=== PATIENT | female | born 1950 | race Caucasian/White ===

== ENCOUNTER 2023-08-17 17:27 | Emergency (ER) | payer MEDICARE, SELFPAY ==
[2023-08-17] VITALS (16 sets, daily range): BP systolic 95–137; BP diastolic 50–80; PULSE 54–97; RESP 16–27; TEMP 36.6–36.7; O2SAT 99–100; BMI 27.5
--- NOTE | 2023-08-17 17:43 | ECG_ITS ---
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
--- NOTE | 2023-08-17 17:43 | XR_ITS ---
The [address] [address] Patient Name: JANEEN PATTEN MRN: [id number] date: 1950 Sex: F Assigned Patient Location: ER Current Patient Location: ER Accession/Order Number: [id number] Exam Date: 08/17/2023 18:20 Report Date: 08/17/2023 18:56 At the request of: MEDARDO GÓMEZ Procedure: XR chest 1V EXAM: XR chest 1V at 1818 hours HISTORY: Dizziness COMPARISON: 02/03/2022 TECHNIQUE: AP upright portable chest x-ray FINDINGS: Shallow inspiration. The heart is not enlarged and the vasculature is not distended. Very slight haziness at the lung bases is felt to be due to overlying soft tissues. No definite infiltrate, effusion or pneumothorax is identified. The osseous structures are grossly intact. XR/XR chest 1V IMPRESSION: There is no clear evidence of a focal infiltrate or cardiac decompensation. Given the differences in technique and projection, the overall appearance has probably not changed significantly. A follow-up study encouraging the patient to take a deep inspiration in the fully upright position is recommended.. Electronically authenticated by: DEYVI RICHARD Date: 08/17/2023 18:56
--- NOTE | 2023-08-17 17:45 | ED_ITS ---
Documented by User: ARMANDO Gray 08/17/23 21:57 HPI - Dizziness General Chief Complaint: Dizziness Stated Complaint: DIZZNESS Time Seen by Provider: 08/17/23 17:32 Source: patient Limitations: no limitations History of Present Illness HPI Narrative: Patient is a 73-year-old female presents to the emergency department for an onset of dizziness, she states she feels like she is spinning but she is unable to describe if she has a sensation only at rest or if it is worse with ambulation. She states she took a Zyrtec several hours ago as she was feeling stuffy with nasal congestion and ear pressure. She states she drank a glass of wine just prior to arrival and believes that it made her very dizzy. She is actively vomiting at time of my initial interview. She has no chest pain, shortness of breath, headache, visual changes, peripheral paresthesias. No medications taken prior to arrival. She states she had vertigo in the past but does not feel this is similar Related Data Home Medications Medication Instructions Recorded Confirmed No Known Home Medications 08/17/23 08/17/23 Allergies Allergy/AdvReac Type Severity Reaction Status Date / Time No Known Drug Allergies Allergy Verified 08/17/23 17:33 Review of Systems ROS Constitutional Denies: fever or chills Ears, nose, mouth, and throat Denies: throat pain or nasal congestion Cardiovascular Denies: chest pain Respiratory Reports: cough; Denies: shortness of breath Gastrointestinal Reports: nausea and vomiting Musculoskeletal Denies: back pain or neck pain Integumentary/Breast Denies: rash Neurological Reports: dizziness; Denies: headache, numbness in extremities, weakness in extremities or slurred speech [facility] Social History Smoking status: Never smoker Exam Narrative Exam Narrative: Gen.: Awake, alert, in no distress Head: Normocephalic, atraumatic ENT: Moist mucous membranes, Bilateral TMs clear Respiratory: No respiratory distress, lungs clear bilaterally Cardio: Regular rate and rhythm Gastrointestinal: Abdomen is soft, nondistended and nontender to palpation Extremities: Moves extremities equally Psych: Normal mood and affect Neuro: No focal neuro deficit Skin: Warm, dry, intact Constitutional Vital Signs, click to edit/add: Last Vital Signs Temp 97.8 F 08/17/23 19:18 Pulse 54 L 08/17/23 21:51 Resp 18 08/17/23 21:51 BP 137/80 08/17/23 21:51 Pulse Ox 100 08/17/23 21:51 O2 Del Method Room Air 08/17/23 21:51 Course Vital Signs Vital signs: Vital Signs Temperature 98.0 F 08/17/23 17:34 Pulse Rate 67 08/17/23 17:34 Respiratory Rate 18 08/17/23 17:34 Blood Pressure 122/59 08/17/23 17:34 Pulse Oximetry 100 08/17/23 17:34 Oxygen Delivery Method Room Air 08/17/23 17:34 Temperature 97.8 F 08/17/23 19:18 Pulse Rate 54 L 08/17/23 21:51 Respiratory Rate 18 08/17/23 21:51 Blood Pressure 137/80 08/17/23 21:51 Pulse Oximetry 100 08/17/23 21:51 Oxygen Delivery Method Room Air 08/17/23 21:51 MDM - Dizziness MDM Narrative Medical decision making narrative: 2154: Treated with IV fluids, Zofran, Valium with improvement. Lab studies within normal limits. Patient was sent to [facility] for CT scanning as our CT scanner is down at this facility. Chest x-ray is unremarkable. She has no complaints of headache, visual changes, peripheral paresthesias. She was noted to have unequal pupils, she does have a history of cataract surgery. She has no other focal medical complaints in the ER. Case is turned over to attending physician at this time pending CT scan results Medical Records Attestation: I reviewed the patient's medical records. Lab Data Attestation: I reviewed the patient's lab results. Labs: Lab Results 08/17/23 08/17/23 08/17/23 Range/Units 17:49 17:53 20:40 WBC 6.7 (4.0-11.0) 10^3/uL RBC 4.35 (4.20-5.40) 10^6/uL Hgb 14.1 (12.0-16.0) g/dL Hct 42.4 (36.0-48.0) % MCV 97.5 (81.0-99.0) fL MCH 32.4 (26.7-34.0) pg MCHC 33.3 (29.9-35.2) g/dL RDW 11.9 (11.0-15.0) % Plt Count 278 (150-450) 10^3/uL MPV 9.4 L (9.5-13.5) fL Neut % (Auto) 39.2 L (43.0-75.0) % Lymph % (Auto) 47.4 (20.5-60.0) % [place] % (Auto) 9.3 (1.7-12.0) % Eos % (Auto) 1.5 (0.9-7.0) % Baso % (Auto) 1.4 (0.2-2.0) % Neut # (Auto) 2.6 (1.4-6.5) 10^3/uL Lymph # (Auto) 3.2 (1.2-3.8) 10^3/uL [place] # (Auto) 0.6 (0.3-0.8) 10^3/uL Eos # (Auto) 0.1 (0.0-0.7) 10^3/uL Baso # (Auto) 0.1 (0.0-0.1) 10^3/uL Abs Immat Gran (auto) 0.08 H (0.00-0.03) 10^3/uL Imm/Tot Granulo (auto) 1.2 H (0.0-0.5) % PT 9.7 (9.0-11.6) sec INR <0.93 Sodium 140 (136-145) mmol/L Potassium 3.3 L (3.5-5.1) mmol/L Chloride 102 (98-107) mmol/L Carbon Dioxide 23.6 (21.0-32.0) mmol/L Anion Gap 17.7 BUN 19.0 H (7.0-18.0) mg/dL Creatinine 0.78 (0.55-1.02) mg/dL Est GFR ( Amer) >60 (>=60) Est GFR (Non-Af Amer) >60 (>=60) BUN/Creatinine Ratio 24.4 Glucose 127 H (74-106) mg/dL Calcium 9.3 (8.5-10.1) mg/dL Total Bilirubin 0.4 (0.2-1.0) mg/dL AST 21 (15-37) U/L ALT 18 (14-59) U/L Alkaline Phosphatase 82 (46-116) U/L Troponin I High Sens <4.0 L (4.0-51.3) pg/mL Total Protein 7.4 (6.4-8.2) g/dL Albumin 3.6 (3.4-5.0) g/dL Globulin 3.8 g/dL Albumin/Globulin Ratio 0.9 TSH 2.187 (0.358-3.740) uIU/mL Urine Color Lt. yellow (YELLOW) Urine Clarity Clear (CLEAR) Urine pH 7.5 (5.0-9.0) Ur Specific [place] 1.015 (1.005-1.025) Urine Protein Negative (NEG/TRACE) mg/dL Urine Glucose (UA) Negative (NEGATIVE) mg/dL Urine Ketones Negative (NEGATIVE) mg/dL Urine Occult Blood Negative (NEGATIVE) Urine Nitrite Negative (NEGATIVE) Urine Bilirubin Negative (NEGATIVE) Urine Urobilinogen 0.2 (0.2-1.0) EU/dL Ur Leukocyte Esterase Small A (NEGATIVE) Urine RBC 0-2 (0-2) #/HPF Urine WBC 0-2 A (NONE SEEN) #/HPF Ur Squamous Epith Cells Rare (NONE/RARE) #/LPF Urine Crystals None seen (None Seen) #/HPF Urine Bacteria None seen (NONE SEEN) #/HPF Urine Casts None seen (NONE SEEN) #/LPF Urine Mucus None seen (NONE SEEN) Influenza Type A Ag Negative Influenza Type B Ag Negative SARS-CoV-2 Ag (CV2AG) Negative (NEGATIVE) Imaging Data Chest x-ray: Attestation: I have reviewed the pertinent imaging results. Radiologist's impression: ITS Impressions Chest X-Ray 08/17/23 17:43 IMPRESSION: There is no clear evidence of a focal infiltrate or cardiac decompensation. Given the differences in technique and projection, the overall appearance has probably not changed significantly. A follow-up study encouraging the patient to take a deep inspiration in the fully upright position is recommended.. Electronically authenticated by: DEYVI RICHARD Date: 08/17/2023 18:56 ECG Data Attestation: I personally reviewed and interpreted this ECG as follows: (Normal sinus rhythm at a rate of 68, no acute ST elevation or ectopy. EKG reviewed by attending physician) Discharge Plan Discharge Stand Alone Forms: Portal Instructions Chief Complaint: Dizziness Clinical Impression: Dizziness, Vertigo Patient Disposition: Home, Self-Care Time of Disposition Decision: 22:59 Condition: Good Prescriptions / Home Meds: No Action No Known Home Medications Instructions: Vertigo (ED), Lightheadedness (ED), Dizziness (ED) Referrals: Amina Jolly MD [Primary Care Provider] - 1 week Documented by User: Marily Lacey MD 08/17/23 23:00 HPI - Dizziness General Chief Complaint: Dizziness Stated Complaint: DIZZNESS Time Seen by Provider: 08/17/23 17:32 Related Data Home Medications Medication Instructions Recorded Confirmed No Known Home Medications 08/17/23 08/17/23 Allergies Allergy/AdvReac Type Severity Reaction Status Date / Time No Known Drug Allergies Allergy Verified 08/17/23 17:33 PFSH PFS Social History Smoking status: Never smoker Exam Constitutional Vital Signs, click to edit/add: Last Vital Signs Temp 97.8 F 08/17/23 19:18 Pulse 54 L 08/17/23 21:51 Resp 18 08/17/23 21:51 BP 137/80 08/17/23 21:51 Pulse Ox 100 08/17/23 21:51 O2 Del Method Room Air 08/17/23 21:51 Course Vital Signs Vital signs: Vital Signs Temperature 98.0 F 08/17/23 17:34 Pulse Rate 67 08/17/23 17:34 Respiratory Rate 18 08/17/23 17:34 Blood Pressure 122/59 08/17/23 17:34 Pulse Oximetry 100 08/17/23 17:34 Oxygen Delivery Method Room Air 08/17/23 17:34 Temperature 97.8 F 08/17/23 19:18 Pulse Rate 54 L 08/17/23 21:51 Respiratory Rate 18 08/17/23 21:51 Blood Pressure 137/80 08/17/23 21:51 Pulse Oximetry 100 08/17/23 21:51 Oxygen Delivery Method Room Air 08/17/23 21:51 MDM - Dizziness MDM Narrative Medical decision making narrative: 2154: Treated with IV fluids, Zofran, Valium with improvement. Lab studies within normal limits. Patient was sent to [facility] scanning as our CT scanner is down at this facility. Chest x-ray is unremarkable. She has no complaints of headache, visual changes, peripheral paresthesias. She was noted to have unequal pupils, she does have a history of cataract surgery. She has no other focal medical complaints in the ER. Case is turned over to attending physician at this time pending CT scan results Pt seen and evaluated after CT scanning. She states she is feeling better and her dizziness has resolved. She ambulated around the ER without dizziness or ataxia. Her CT report is negative for acute findings. She feels comfortable going home and requested that I suggest something to help unclog her left ear. She recently had URI symptoms and still has fluid behind her left ear. I reviewed this. There is an effusion behind her left eardrum that does not appear to be red or retracted. She'll be discharged home with meclizine. I suggested Mucinex as needed for the fluid behind her eardrum. She will be discharged home with Rx for meclizine. Lab Data Labs: Lab Results 08/17/23 08/17/23 08/17/23 Range/Units 17:49 17:53 20:40 WBC 6.7 (4.0-11.0) 10^3/uL RBC 4.35 (4.20-5.40) 10^6/uL Hgb 14.1 (12.0-16.0) g/dL Hct 42.4 (36.0-48.0) % MCV 97.5 (81.0-99.0) fL MCH 32.4 (26.7-34.0) pg MCHC 33.3 (29.9-35.2) g/dL RDW 11.9 (11.0-15.0) % Plt Count 278 (150-450) 10^3/uL MPV 9.4 L (9.5-13.5) fL Neut % (Auto) 39.2 L (43.0-75.0) % Lymph % (Auto) 47.4 (20.5-60.0) % [place] % (Auto) 9.3 (1.7-12.0) % Eos % (Auto) 1.5 (0.9-7.0) % Baso % (Auto) 1.4 (0.2-2.0) % Neut # (Auto) 2.6 (1.4-6.5) 10^3/uL Lymph # (Auto) 3.2 (1.2-3.8) 10^3/uL [place] # (Auto) 0.6 (0.3-0.8) 10^3/uL Eos # (Auto) 0.1 (0.0-0.7) 10^3/uL Baso # (Auto) 0.1 (0.0-0.1) 10^3/uL Abs Immat Gran (auto) 0.08 H (0.00-0.03) 10^3/uL Imm/Tot Granulo (auto) 1.2 H (0.0-0.5) % PT 9.7 (9.0-11.6) sec INR <0.93 Sodium 140 (136-145) mmol/L Potassium 3.3 L (3.5-5.1) mmol/L Chloride 102 (98-107) mmol/L Carbon Dioxide 23.6 (21.0-32.0) mmol/L Anion Gap 17.7 BUN 19.0 H (7.0-18.0) mg/dL Creatinine 0.78 (0.55-1.02) mg/dL Est GFR ( Amer) >60 (>=60) Est GFR (Non-Af Amer) >60 (>=60) BUN/Creatinine Ratio 24.4 Glucose 127 H (74-106) mg/dL Calcium 9.3 (8.5-10.1) mg/dL Total Bilirubin 0.4 (0.2-1.0) mg/dL AST 21 (15-37) U/L ALT 18 (14-59) U/L Alkaline Phosphatase 82 (46-116) U/L Troponin I High Sens <4.0 L (4.0-51.3) pg/mL Total Protein 7.4 (6.4-8.2) g/dL Albumin 3.6 (3.4-5.0) g/dL Globulin 3.8 g/dL Albumin/Globulin Ratio 0.9 TSH 2.187 (0.358-3.740) uIU/mL Urine Color Lt. yellow (YELLOW) Urine Clarity Clear (CLEAR) Urine pH 7.5 (5.0-9.0) Ur Specific [place] 1.015 (1.005-1.025) Urine Protein Negative (NEG/TRACE) mg/dL Urine Glucose (UA) Negative (NEGATIVE) mg/dL Urine Ketones Negative (NEGATIVE) mg/dL Urine Occult Blood Negative (NEGATIVE) Urine Nitrite Negative (NEGATIVE) Urine Bilirubin Negative (NEGATIVE) Urine Urobilinogen 0.2 (0.2-1.0) EU/dL Ur Leukocyte Esterase Small A (NEGATIVE) Urine RBC 0-2 (0-2) #/HPF Urine WBC 0-2 A (NONE SEEN) #/HPF Ur Squamous Epith Cells Rare (NONE/RARE) #/LPF Urine Crystals None seen (None Seen) #/HPF Urine Bacteria None seen (NONE SEEN) #/HPF Urine Casts None seen (NONE SEEN) #/LPF Urine Mucus None seen (NONE SEEN) Influenza Type A Ag Negative Influenza Type B Ag Negative SARS-CoV-2 Ag (CV2AG) Negative (NEGATIVE) Imaging Data Chest x-ray: Radiologist's impression: ITS Impressions Chest X-Ray 08/17/23 17:43 IMPRESSION: There is no clear evidence of a focal infiltrate or cardiac decompensation. Given the differences in technique and projection, the overall appearance has probably not changed significantly. A follow-up study encouraging the patient to take a deep inspiration in the fully upright position is recommended.. Electronically authenticated by: DEYVI RICHARD Date: 08/17/2023 18:56 Discharge Plan Discharge Stand Alone Forms: Portal Instructions Chief Complaint: Dizziness Clinical Impression: Dizziness, Vertigo Patient Disposition: Home, Self-Care Time of Disposition Decision: 22:59 Condition: Good Prescriptions / Home Meds: No Action No Known Home Medications Instructions: Vertigo (ED), Lightheadedness (ED), Dizziness (ED) Referrals: Amina Jolly MD [Primary Care Provider] - 1 week
[2023-08-17] MEDS: 0.9 % SODIUM CHLORIDE 1,000 ML 999 ML IV (17:50)
[2023-08-17] MEDS: ONDANSETRON PF 4 MG/2 ML VIAL IV ×2 (17:51→18:44)
[2023-08-17] MEDS: MECLIZINE HCL 12.5 MG TABLET 25 MG PO (17:51)
[2023-08-17 18:00] LABS: Basophils Absolute Auto 0.1 10^3/uL (0.0-0.1); Basophils Percent Auto 1.4 % (0.2-2.0); Eosinophils Absolute Auto 0.1 10^3/uL (0.0-0.7); Eosinophils Percent Auto 1.5 % (0.9-7.0); Hematocrit 42.4 % (36.0-48.0); Hemoglobin 14.1 g/dL (12.0-16.0); Immature Granulocytes Abs Auto 0.08 10^3/uL (0.00-0.03); Immature Granulocytes Pct Auto 1.2 % (0.0-0.5); Lymphocytes Absolute Auto 3.2 10^3/uL (1.2-3.8); Lymphocytes Percent Auto 47.4 % (20.5-60.0); Mean Corpuscular HGB Conc 33.3 g/dL (29.9-35.2); Mean Corpuscular Hemoglobin 32.4 pg (26.7-34.0); Mean Corpuscular Volume 97.5 fL (81.0-99.0); Mean Platelet Volume 9.4 fL (9.5-13.5); Monocytes Absolute Auto 0.6 10^3/uL (0.3-0.8); Monocytes Percent Auto 9.3 % (1.7-12.0); Neutrophils Absolute Auto 2.6 10^3/uL (1.4-6.5); Neutrophils Percent Auto 39.2 % (43.0-75.0); Platelet Count 278 10^3/uL (150-450); Red Blood Count 4.35 10^6/uL (4.20-5.40); Red Cell Distribution Width 11.9 % (11.0-15.0); White Blood Count 6.7 10^3/uL (4.0-11.0)
[2023-08-17 18:14] LABS: Influenza Virus A Antigen Negative; Influenza Virus B Antigen Negative; Internal Control Within Normal Limits; SARS-CoV-2 Ag NEGATIVE (NEGATIVE)
[2023-08-17 18:14] LABS: INR <0.93; Prothrombin Time 9.7 sec (9.0-11.6)
[2023-08-17 18:15] LABS: Alanine Aminotransferase 18 U/L (14-59); Albumin Globulin Ratio 0.9; Albumin Level 3.6 g/dL (3.4-5.0); Alkaline Phosphatase 82 U/L (46-116); Anion Gap 17.7; Aspartate Amino Transferase 21 U/L (15-37); BUN Creatinine Ratio 24.4; Bilirubin Total 0.4 mg/dL (0.2-1.0); Calcium 9.3 mg/dL (8.5-10.1); Carbon Dioxide 23.6 mmol/L (21.0-32.0); Chloride 102 mmol/L (98-107); Estimated GFR (African America >60 (>=60); Estimated GFR (Non-African Ame >60 (>=60); Globulin 3.8 g/dL; Glucose 127 mg/dL (74-106); Potassium 3.3 mmol/L (3.5-5.1); Sodium 140 mmol/L (136-145); Total Protein 7.4 g/dL (6.4-8.2)
[2023-08-17] MEDS: DIAZEPAM 10 MG/2 ML SYRINGE 2 MG IV (18:21)
[2023-08-17 18:24] LABS: Thyroid Stimulating Hormone 2.187 uIU/mL (0.358-3.740); Troponin I High Sensitivity <4.0 pg/mL (4.0-51.3)
[2023-08-17 20:46] LABS: Bilirubin Urine NEGATIVE (NEGATIVE); Blood Urine NEGATIVE (NEGATIVE); Clarity Urine CLEAR (CLEAR); Color Urine LT. YELLOW (YELLOW); Glucose Urine UA NEGATIVE (NEGATIVE); Ketones Urine NEGATIVE (NEGATIVE); Leukocyte Esterase Urine SMALL (NEGATIVE); Nitrite Urine NEGATIVE (NEGATIVE); Protein Urine NEGATIVE (NEG/TRACE); Specific Gravity Urine 1.015 (1.005-1.025); Urine Microscopic Indicated YES; Urobilinogen Urine 0.2 EU/dL (0.2-1.0); pH Urine 7.5 (5.0-9.0)
[2023-08-17 21:14] LABS: Bacteria Urine NONE SEEN #/HPF (NONE SEEN); Cast Seen? NONE SEEN #/LPF (NONE SEEN); Crystals Seen? None Seen #/HPF (None Seen); Mucus Urine NONE SEEN (NONE SEEN); RBC Urine 0-2 #/HPF (0-2); Squamous Epithelial Cell Urine RARE #/LPF (NONE/RARE); WBC Urine 0-2 #/HPF (NONE SEEN)
== END 2023-08-17 23:08 | disposition home or self-care (01) ==
PROVIDERS: Physician Assistant; Emergency Provider Emergency Medicine; PCP Family Medicine
DX: R42 Dizziness and giddiness (principal); R11.2 Nausea with vomiting, unspecified; R05.9 Cough, unspecified
CPT/HCPCS: 36415; 70450; 71045; 80053; 81001; 84443; 84484; 85025; 85610; 87804; 87811; 93005; 96374; 96375; 96376; 99285

== ENCOUNTER 2023-09-14 07:48 | Outpatient (RCR) | payer MEDICARE, SELFPAY | END 2023-09-22 13:19 | disposition home or self-care (01) | LOC: PT 07:48 | PROVIDERS: PCP Family Medicine; Visit Provider Family Medicine | DX: R42 Dizziness and giddiness (principal) | CPT/HCPCS: 97112; 97162 ==

== ENCOUNTER 2023-11-22 06:19 | Emergency (ER) | payer MEDICARE, SELFPAY ==
[2023-11-22] VITALS (21 sets, daily range): BP systolic 96–163; BP diastolic 59–68; PULSE 49–68; TEMP 36.6; O2SAT 97–100; BMI 26.6
--- OUTSIDE RECORDS SUMMARY | 2023-11-22 06:27 | XMS_ITS ---
Patient Summarization (C-CDA 2.1 CCD) Created on: November 22, 2023 Nette Puentes : 1950 Sex: Female Author Organization Sample organization Care Team Providers Care Cargo Mate Name Role Phone JAYSON, DR AMINA Garduno Primary Care Unavailable TYLER, DR AMINA Garduno Admitting Unavailable TYLER, DR AMINA Garduno Attending Unavailable ZIEBER, DR FRANDY Infante Consulting Unavailable TYLER, DR AMINA Garduno Consulting Unavailable TYLER, DR AMINA Garduno Admitting Unavailable TYLER, DR AMINA Garduno Attending Unavailable TYLER, DR AMINA Garduno Consulting Unavailable TYLER, DR AMINA Garduno Primary Care Unavailable TYLER, DR AMINA Garduno Admitting Unavailable TYLER, DR AMINA Garduno Attending Unavailable TYLER, DR AMINA Garduno Consulting Unavailable TYLER, DR AMINA Garduno Primary Care Unavailable MARKER, DR GUZMÁN Admitting Unavailable MARKER, DR GUZMÁN Attending Unavailable MARKER, DR GUZMÁN Consulting Unavailable TYLER, DR AMINA Garduno Primary Care Unavailable KLIPPERAPOLLO Consulting Unavailable Tyler, Amina Unavailable JAYSON, AMINA Primary Care Physician Padma Joyner Attending Unavailable Ar, Padma Admitting Unavailable Ar, Padma Admitting Unavailable Ar, Padma Attending Unavailable Encounters Encounter Date Encounter Type Care Provider Facility Start: 09-11-2023 End: 09-11-2023 ambulatory [facility] Work Phone: Start: 09-11-2023 End: 09-11-2023 Patient encounter procedure [facility] Work Phone: Start: 08-21-2023 End: 08-21-2023 Patient encounter procedure [facility] Work Phone: Start: 08-17-2023 End: 08-18-2023 ambulatory Padma Joyner Facility:[facility] Start: 08-17-2023 End: 08-17-2023 Patient encounter procedure Padma Joyner [facility] Start: 08-17-2023 Non-patient / Non-visit [facility] [employer] Work Phone: Start: 02-23-2023 End: 02-23-2023 ambulatory Amina Tyler Other [facility] [employer] Other Start: 02-23-2023 Office outpatient vi sit 15 minutes Amina Tyler [facility] Start: 05-09-2022 End: 05-10-[address] AMINA TYLER Facility:[facility] Start: 02-11-2022 End: 02-12-[address] AMINA TYLER Facility:[facility] Start: 02-03-2022 End: 02-04-[address] RAMIREZ LOVING Facility:[facility] Start: 05-26-2021 End: 05-26-[address] AMINA TYLER Facility:[facility] Immunizations Immunization Date Immunization Notes Care Provider Fa yola 03-16-2020 pneumococcal conjuga te vaccine, 13 valent Amina Tyler Other [facility] Medications Current Medications Medication Drug Class(es) Dates Sig (Normalized) Sig (Original) meclizine hydrochloride 25 mg oral tablet (2 sources) Antiemetic Start: 08-21-2023 take 25 mg by mouth once daily Meclizine Active 25 MG PO Daily August 21, 2023 12:00am take 1 tablet by barbara th every twelve hours Meclizine HCl 25 MG 1 tablet as needed Orally every 12 hrs for 15 days Active meloxicam 15 mg oral tablet (1 source) Nonsteroidal Anti-inflammatory Drug Start: 05-04-2021 take 1 tablet by mouth once daily Meloxicam 15 MG Meloxicam 15MG, 1 (one) Tablet daily # 30, 05/04/2021, Ref. x1. Active Oral daily for 0 Apr, Active vitamin B12 (1 source) Vitamin B12 Start: 05-08-2018 Vitamin B-12 Vitamin B-12 , , 05/08/2018, No Refill. Active for 0 VITAMIN B-12 500 MCG ORAL TABLET, *Pick strength-form from [employer] for eRX* Apr, Active Payers Date Payer Category Payer Medicare [id number] 1959 Private Health Insurance [id number] 1950 Unknown [id number] 1950 Unknown [id number] 1950 Unknown [id number] 1950 Unknown [id number] 1950 Unknown [id number] 1950 Unknown [id number] Private Health Insurance CLI [id number] Unknown Bisi COX/SHEELA [id number] Plan of Treatment Date Care Activity Detail Author Start: 09-11-2023 Patient referral [facility] Work Phone: Patient referral [facility] Work Phone: Problems Active Problems Problem Classification Problem Date Documented Date Episodic/Chronic Anxiety disorders (3 sources) Other specified anxiety disorders; Translations: [Panic disorder [episodic paroxysmal anxiety]] Onset: 02-07-2022 Chronic Conditions associated with dizziness or vertigo (7 sources) Dizziness and giddiness; Translations: [Benign paroxysmal vertigo, unspecified ear] Onset: 02-03-2022 Episodic Other ear and sense organ disorders (1 source) Hearing loss of left ear; Translations: [Unspecified hearing loss, left ear] 09-11-2023 Chronic Other ear and sense organ disorders (1 source) Unspecified hearing loss, left ear; Translations: [Unspecified hearing loss] 09-11-2023 Chronic Other ear and sense organ disorders (1 source) Tinnitus; Translations: [Tinnitus, left ear] 09-11-2023 Episodic Other ear and sense organ disorders (1 source) Tinnitus, left ear; Translations: [Tinnitus, unspecified] 09-11-2023 Episodic Other non-traumatic joint disorders (1 source) Shoulder joint pain; Translations: [Pain in right shoulder] Episodic Other screening for suspected conditions (not mental disorders or infectious disease) (4 sources) Encounter for screening mammogram for malignant neoplasm of breast; Translations: [ENC SCR MAMMO MALIG NEOPLASM BREAST] Onset: 05-09-2022 Episodic Otitis media and related conditions (2 sources) Acute transudative otitis media; Translations: [Other acute nonsuppurative otitis media, bilateral] 08-24-2023 Episodic Residual codes; unclassified (1 source) Family history of malignant neoplasm of other organs or systems; Translations: [FAM HX MALIG NEOPLASM OTH ORGN/SYS] Onset: 05-14-2022 Episodic Syncope (5 sources) Syncope and collapse; Translations: [Syncope and collapse] Onset: 02-11-2022 Episodic Unclassified (4 sources) CONTACT W/AND (SUSP) EXPOS COVID-19; Translations: [CONTACT W/AND (SUSP) EXPOS COVID-19] Onset: 05-29-2021 Past or Other Problems Problem Classification Problem Date Documented Da te Episodic/Chronic Other lower respiratory disease (1 source) Dyspnea, unspecified; Translations: [DYSPNEA UNSPECIFIED] Onset: 02-07-2022 Episodic Unclassified (1 source) CONTACT W/AND (SUSP) EXPOS COVID-19; Translations: [CONTACT W/AND (SUSP) EXPOS COVID-19] Onset: 05-26-2021 Results Test Name Value Interpretation Reference Range Facility CT Head or Brain w/o Contras ton 08-18-2023 CT Head or Brain w/o Contrast Exam Date/Time: 08/17/2023 21:18 EST Reason for Exam: Other (please specify)Dizziness Report IMPRESSION: No acute intracranial process. EXAMINATION: CT Head or Brain w/o Contrast HISTORY: Other (please specify)Dizziness. Nausea. Vomiting. Dizziness. Weakness. TECHNIQUE: Serial axial images without IV contrast were obtained from the vertex to the foramen magnum, with sagittal and coronal reconstructions. All CT scans at this facility use dose modulation, iterative reconstruction, and/or weight based dosing when appropriate to reduce radiation dose to as low as reasonably achievable. COMPARISON: None. RESULT: Acute change: No evidence of an acute infarct or other acute parenchymal process. Hemorrhage: No evidence of acute intracranial hemorrhage. Mass Lesion / Mass Effect: There is no evidence of an intracranial mass or extraaxial fluid collection. No significant mass effect. Chronic change: None apparent. Parenchyma: There is mild generalized volume loss. Ventricles: The ventricles are within normal limits of size and configuration for age. Paranasal sinuses and skull base: Thickening/opacificati on of the left sphenoid sinus. Mastoid air cells clear. The skull base is unremarkable. Soft tissues unremarkable. Report Ordering Provider: Padma Joyner FINAL REPORT Dictated: 08/18/2023 9:03 am Lorenzo Viramontes MD Signed (Electronic Signature): 08/18/2023 9:03 am Signed by: Lorenzo Viramontes MD Transcribed by: JORDYN Technologist: LIZZ Normal [facility] Automated epithelial cells c ount in urine sediment (number/area)on 08-17-2023 Epithelial cells Auto (Urine sed) [#/Area] RARE #/LPF NONE/RARE [facility] Automated leukocytes count i n urine sediment (number/area)on 08-17-2023 WBC Auto (Urine sed) [#/Area] 0-2 #/HPF 0-2 [facility] Automated urine specific gra vity by refractometryon 08-17-2023 Specific gravity Refractometry automated (U) [Rel density] 1.015 1.005-1.025 [facility] Basophils Auto (Bld) [#/Vol] on 08-17-2023 Basophils (Bld) [#/Vol] 0.1 10 3/uL 0.0-0.1 [facility] Basophils/100 WBC Auto (Bld) on 08-17-2023 Basophils/100 WBC (Bld) 1.4 % 0.2-2.0 [facility] Bilirubin Auto test strip (U ) [Mass/Vol]on 08-17-2023 Bilirubin (U) [Mass/Vol] Negative NEGATIVE [facility] Casts typing in urine sedime nt by light microscopyon 08-17-2023 Casts LM Nom (Urine sed) NONE SEEN #/LPF NONE SEEN [facility] Color Auto (U)on 08-17-2023 Color (U) LT. YELLOW YELLOW [facility] Consent for Treatmenton Consent for Treatment [id number]#1. 00TIFF Normal [facility] Eosinophils/100 WBC Auto (Bl d)on 08-17-2023 Eosinophils/100 WBC (Bld) 1.5 % 0.9-7.0 [facility] Erythrocyte distribution wid th Auto (RBC) [Ratio]on 08-17-2023 Erythrocyte distribution width (RBC) [Ratio] 11.9 % 11.0-15.0 [facility] Estimated glomerular filtrat ion rate (GFR) non- Americanon 08-17-2023 GFR/1.73 sq M.predicted among non-blacks MDRD (S/P/Bld) [Vol rate/Area] mL/min/{1.73_m2} >=60 [facility] Globulin Calc (S) [Mass/Vol] on 08-17-2023 Globulin (S) [Mass/Vol] 3.8 g/dL [facility] Hematocrit Auto (Bld) [Volum e fraction]on 08-17-2023 Hematocrit (Bld) [Volume fraction] 42.4 % 36.0-48.0 [facility] Hemoglobin [Mass/volume] in Bloodon 08-17-2023 Hemoglobin (Bld) [Mass/Vol] 14.1 g/dL 12.0-16.0 [facility] INR in Platelet poor plasma by Coagulation assayon 08-17-2023 INR Coag (PPP) [Relative time] {INR} [facility] Comment on above: DESIRED INR:2.0-3.0 CONDITIONS NOT LISTED BELOW2.5-3.5 FOR PROSTHETIC HEART VALVE REPLACEMENT2.5-3.5 RECURRENT THROMBOSIS Ketones Auto test strip (U) [Mass/Vol]on 08-17-2023 Ketones (U) [Mass/Vol] Negative NEGATIVE [facility] Laboratory - Chemistry and C hemistry - challengeon 08-17-2023 Albumin [Mass/Vol] 3.6 g/dL 3.4-5.0 [facility] ALP [Catalytic activity/Vol] 82 U/L 46-116 [facility] ALT [Catalytic activity/Vol] 18 U/L 14-59 [facility] AST [Catalytic activity/Vol] 21 U/L 15-37 [facility] Bilirubin [Mass/Vol] 0.4 mg/dL 0.2-1.0 [facility] Calcium [Mass/Vol] 9.3 mg/dL 8.5-10.1 [facility] Chloride [Moles/Vol] 102 mmol/L 98-107 [facility] CO2 [Moles/Vol] 23.6 mmol/L 21.0-32.0 [facility] Creatinine [Mass/Vol] 0.78 mg/dL 0.55-1.02 [facility] GFR/1.73 sq M.predicted MDRD (S/P/Bld) [Vol rate/Area] mL/min/{1.73_m2} >=60 [facility] Glucose [Mass/Vol] 127 mg/dL 74-106 [facility] Potassium [Moles/Vol] 3.3 mmol/L 3.5-5.1 [facility] Protein [Mass/Vol] 7.4 g/dL 6.4-8.2 [facility] Sodium [Moles/Vol] 140 mmol/L 136-145 [facility] TSH Qn 2.187 m[IU]/L 0.358-3.740 [facility] Urea nitrogen [Mass/Vol] 19.0 mg/dL 7.0-18.0 [facility] Urea nitrogen/Creatinine [Mass ratio] 24.4 mg/mg [facility] - Hematology and Cell countson 08-17-2023 Immature granulocytes/100 WBC (Bld) 1.2 % 0.0-0.5 [facility] - Microbiology an d Antimicrobial susceptibilityon 08-17-2023 SARS-CoV-2 (COVID-19) RNA PADMINI+probe Ql (Unsp spec) Negative NEGATIVE [facility] Comment on above: This test has not be en FDA cleared or approved, but has beenauthorized by the FDA under an Emergency Use Authorization(EUA) for use by authorized laboratories certified underIA that meet the requirements to perform moderate or highcomplexity testing. This test has been authorized only forthe detection of proteins from SARS-CoV-2, not for any otherviruses or pathogens. The emergency use of this test isauthorized for the duration of the declaration thatcircumstances exist justifying the authorization ofemergency use of in vitro diagnostic tests for detectionand/or diagnosis of Covid-19 under section 564(b)(1) of theAct, 21 U.S.C. 360bbb-3(b)(1), unless the declaration isterminated or authorization is revoked sooner. Leukocytes [#/volume] correc vikash for nucleated erythrocytes in Blood by Automated counon 08-17-2023 WBC corrected for nucl RBC Auto (Bld) [#/Vol] 6.7 10 3/uL 4.0-11.0 [facility] Lymphocytes Auto (Bld) [#/Vo l]on 08-17-2023 Lymphocytes (Bld) [#/Vol] 3.2 10 3/uL 1.2-3.8 [facility] Lymphocytes/100 WBC Auto (Bl d)on 08-17-2023 Lymphocytes/100 WBC (Bld) 47.4 % 20.5-60.0 [facility] MCH Auto (RBC) [Entitic mass ]on 08-17-2023 MCH (RBC) [Entitic mass] 32.4 pg 26.7-34.0 [facility] MCHC Auto (RBC) [Mass/Vol]on 08-17-2023 MCHC (RBC) [Mass/Vol] 33.3 g/dL 29.9-35.2 [facility] MCV Auto (RBC) [Entitic vol] on 08-17-2023 MCV (RBC) [Entitic vol] 97.5 fL 81.0-99.0 [facility] Monocytes Auto (Bld) [#/Vol] on 08-17-2023 Monocytes (Bld) [#/Vol] 0.6 10 3/uL 0.3-0.8 [facility] Monocytes/100 WBC Auto (Bld) on 08-17-2023 Monocytes/100 WBC (Bld) 9.3 % 1.7-12.0 [facility] Mucus LM Ql (Urine sed)on Mucus Ql (Urine sed) NONE SEEN NONE SEEN [facility] Neutrophils Auto (Bld) [#/Vo l]on 08-17-2023 Neutrophils (Bld) [#/Vol] 2.6 10 3/uL 1.4-6.5 [facility] Neutrophils/100 WBC Auto (Bl d)on 08-17-2023 Neutrophils/100 WBC (Bld) 39.2 % 43.0-75.0 [facility] No Panel Informationon 08-16 Bedside Influenza Type A Antigen Negative [facility] Comment on above: Negative for Flu A p rotein antigen. Infection due to Flu Acannot be ruled out. Flu A antigen in the sample may bebelow the detection limit of the test. Bedside Influenza Type B Antigen Negative [facility] Comment on above: Negative for Flu B p rotein antigen. Infection due to Flu Bcannot be ruled out. Flu B antigen in the sample may bebelow the detection limit of the test. Eosinophils # (Auto) 0.1 10 3/uL 0.0-0.7 [facility] Immature Granulocyte # (Auto) 0.08 10 3/uL 0.00-0.03 [facility] Troponin I High Sensitivity <4.0 pg/mL 4.0-51.3 [facility] Comment on above: CUT-OFF POINTS HAVE BEEN ESTABLISHED BASED ON THE FOURTHUNIVERSAL DEFINITION OF MYOCARDIAL INFARCTION. THE UPPERREFERENCE LIMIT (URL) OF TROPONIN, DEFINED THE 99THPERCENTILE OF cTnI DISTRIBUTION IN A REFERENCE POPULATION,HAS BEEN CONFIRMED THE DECISION THRESHOLD FOR MIDIAGNOSIS.99TH PERCENTILE = 51.4 PG/MLNOTE: HIGH-SENSITIVITY TROPONIN ASSAY IS NOT INTENDED TO BEUSED IN ISOLATION BUT SHOULD BE INTERPRETED IN CONJUNCTIONWITH OTHER DIAGNOSTIC AND CLINICAL INFORMATION. Urine Microscopic Review YES [facility] Physician Orderon 08-17-2023 Physician Order [id number]#1. 00TIFF Normal [facility] Physician Order [id number]#1. 00TIFF Normal [facility] Platelet mean volume Auto (B ld) [Entitic vol]on 08-17-2023 Platelet mean volume (Bld) [Entitic vol] 9.4 fL 9.5-13.5 [facility] Platelets Auto (Bld) [#/Vol] on 08-17-2023 Platelets (Bld) [#/Vol] 278 10 3/uL 150-450 [facility] Protein Auto test strip (U) [Mass/Vol]on 08-17-2023 Protein (U) [Mass/Vol] Negative NEG/TRACE [facility] Prothrombin time (PT)on PT Coag (PPP) [Time] 9.7 s 9.0-11.6 [facility] RAD - MISCon 08-17-2023 RAD - MISC [id number]#1. 00TIFF Normal [facility] RBC Auto (Bld) [#/Vol]on RBC (Bld) [#/Vol] 4.35 10 6/uL 4.20-5.40 [facility] Serum or plasma albumin/glob ulin mass ratioon 08-17-2023 Albumin/Globulin [Mass ratio] 0.9 {ratio} [facility] Serum or plasma anion gap de terminationon 08-17-2023 Anion gap [Moles/Vol] 17.7 [facility] Specific gravity Auto test s trip (U) [Rel density]on 08-17-2023 Specific gravity (U) [Rel density] CLEAR CLEAR [facility] Urine bacteria detection by automated methodon 08-17-2023 Bacteria Auto Ql (U) NONE SEEN #/HPF NONE SEEN [facility] Urine glucose measurement by test strip (mass/volume)on 08-17-2023 Glucose Test strip (U) [Mass/Vol] Negative NEGATIVE [facility] Urine hemoglobin detection b y automated test stripon 08-17-2023 Hemoglobin Auto test strip Ql (U) Negative NEGATIVE [facility] Urine nitrite detection by a utomated test stripon 08-17-2023 Nitrite Auto test strip Ql (U) SMALL NEGATIVE [facility] Nitrite Auto test strip Ql (U) Negative NEGATIVE [facility] Urine sediment crystal ident ification by light microscopyon 08-17-2023 Crystals LM Nom (Urine sed) None Seen #/HPF None Seen [facility] Urine sediment leukocyte cou nt by microscopy (number/high power field)on 08-17-2023 WBC LM.HPF (Urine sed) [#/Area] 0-2 #/HPF NONE SEEN [facility] Urobilinogen Auto test strip (U) [Mass/Vol]on 08-17-2023 Urobilinogen Qn (U) 0.2 {Zhanna'U}/dL 0.2-1.0 [facility] pH Auto test strip (U)on pH (U) 7.5 [pH] 5.0-9.0 [facility] MG MAMM SCREEN 3D LASHELL CADon 05-09-2022 MG MAMM SCREEN 3D LASHELL CAD Patient: NETTE PUENTES Exam Date: 05/09/2022 : 1950 Gender:F Ordering : DR AMINA TYLER M.D. Admission #: [id number] Family : Order #: [id number] CLICK HERE TO VIEW EXAM RADIOLOGY REPORT PROCEDURE: MAMMOGRAM SCREENING 3D BILATERAL CAD COMPARISON: MG MAMM SCREEN 3D LASHELL CAD, 05/07/2021. MG MAMM SCREEN LASHELL W CAD, 05/05/2020. INDICATIONS: Screening mammography Calculator Name NCI Breast Cancer Risk Assessment Tool 5 Year Breast Cancer Risk 1.50% Lifetime Breast Cancer Risk 4.80% Personal Breast Cancer No Personal Ovarian Cancer No Treatments None Family Cancers Mother with pancreatic cancer at age 74. LOCATION: [facility] BREAST COMPOSITION: Scattered areas fibroglandular density. FINDINGS: DIAGNOSTIC CATEGORY 1--NEGATIVE. RIGHT BREAST: No significant suspicious finding. No significant change has occurred. LEFT BREAST: No significant suspicious finding. No significant change has occurred. RECOMMENDATIONS: ROUTINE MAMMOGRAM AND CLINICAL EVALUATION IN 12 MONTHS. PLEASE NOTE: A NORMAL MAMMOGRAM DOES NOT EXCLUDE THE POSSIBILITY OF BREAST CANCER. A CLINICALLY SUSPICIOUS PALPABLE LUMP SHOULD BE BIOPSIED. Dictated by: Frandy Lorenzana M.D. on 05/10/2022 at 12:26 Approved by: Frandy Lorenzana M.D. on 05/10/2022 at 12:52 Normal [facility] ECHOCARDIO M/2D COMPLETEon 0 02-11-2022 ECHOCARDIO M/2D COMPLETE Patient: NETTE PUENTES Exam Date: 02/11/2022 : 1950 Gender:F Ordering : DR AMINA TYLER M.D. Admission #: [id number] Family : Order #: [id number] CLICK HERE TO VIEW EXAM ECHOCARDIOGRAM REPORT PROCEDURE: CARDIO PULMONARY ECHOCARDIO M/2D COMP INDICATIONS: Syncope and collapse COMPARISON: None. DESCRIPTION: COMPLETE ECHOCARDIOGRAM Real-time transthoracic echocardiography with 2D, M-mode, spectral and color flow Doppler performed. QUALITY: Technical quality was good. 64 150# BP 138/86 LEFT VENTRICLE: Normal chamber size. Normal left ventricular wall thickness. LV EF: Normal left ventricular ejection fraction, (>55%). DIASTOLIC: Normal diastolic function. ATRIAL SEPTUM: Visually appears intact. Hypermobile interatrial septum. LEFT ATRIUM: Appears normal in size. RIGHT ATRIUM: Normal chamber size. RIGHT VENTRICLE: Normal chamber size. Normal right ventricular systolic function. TRICUSPID VALVE: Normal mobility and thickness. No stenosis with trivial regurgitation. No evidence of pulmonary hypertension. RVSP 28 mmHg MITRAL VALVE: Normal mobility and thickness. No evidence of mitral valve stenosis. There is no mitral annular calcification. Trivial mitral regurgitation. AORTIC VALVE: Normal trileaflet appearance. Thickened aortic valve. Normal leaflet mobility. No evidence of aortic valve stenosis. No aortic regurgitation. AORTIC ROOT: Normal diameter and appearance. PULMONIC VALVE: Normal thickness and mobility. No stenosis. No regurgitation. PERICARDIUM: Anterior free space; trivial effusion versus fat pad. IVC: Collapses with inspirations. IVC is normal in size. CONCLUSION: Global left ventricular systolic function is normal; visually estimated ejection fraction is 60 to 65%. No significant wall motion abnormalities. Normal diastolic function. The right ventricle is normal in size and systolic function. No significant valvular abnormalities. Anterior free space; trivial effusion versus fat pad. Adult Echocardiography Procedure Report Left Ventricle Left Atrium Mitral Valve Right Ventricle Aorta Aortic Valve Peak Velocity (Antegrade Flow): 0.94 m/s AoV Area (Peak Jose): 2.52 cm2, 2.52 cm2 Tricuspid Valve Peak Velocity (Regurgitant Flow): 2.49 m/s Peak Velocity: 0.46 m/s Pulmonic Valve Peak Velocity: 0.93 m/s Peak Gradient: 3.43 mm[Hg] Right Atrium Dictated by: René Randolph M.D. on 02/11/2022 at 15:52 Approved by: René Randolph M.D. on 02/11/2022 at 16:00 Normal [facility] CBC AUTO DIFFon 02-03-2022 BASO # 0.1 103/ul Normal 0.0-0.1 [facility] Comment on above: Performed By: #### C BC ####[facility] [address] [place], [place] [address]Dr. Janel Morris Basophils/100 WBC (Bld) 1.1 % Normal 0.2-2.0 [facility] Comment on above: Performed By: #### C BC ####[facility] [address] [place], [place] [address]Dr. Janel Morris EO # 0.2 103/ul Normal 0.0-0.7 [facility] Comment on above: Performed By: #### C BC ####[facility] [address] [place], [place] [address]Dr. Janel Morris Eosinophils/100 WBC (Bld) 3.6 % Normal 0.9-7.0 [facility] Comment on above: Performed By: #### C BC ####[facility] [address] [place], [place] [address]Dr. Janel Morris Erythrocyte distribution width (RBC) [Ratio] 12.7 % Normal 11.0-15.0 [facility] Comment on above: Performed By: #### C BC ####[facility] [address] [place], [place] [address]Dr. Janel Morris Hematocrit (Bld) [Volume fraction] 40.0 % Normal 36.0-48.0 [facility] Comment on above: Performed By: #### C BC ####[facility] [address] [place], [place] [address]Dr. Janel Morris Hemoglobin (Bld) [Mass/Vol] 13.5 g/dL Normal 12.0-16.0 [facility] Comment on above: Performed By: #### C BC ####[facility] [address] [place] [id number]. Janel Morris IG # 0.01 10e3/ul Normal 0.00-0.03 [facility] Comment on above: Performed By: #### C BC ####[facility] [address] [place] [id number]. Janel Arturo IG % 0.2 % Normal 0.0-0.5 [facility] Comment on above: Performed By: #### C BC ####[facility] [address] [place] [id number]. Janel Arturo LYMPH # 2.5 103/ul Normal 1.2-3.8 [facility] Comment on above: Performed By: #### C BC ####[facility] [address] [place] [address]Dr. Janel Morris Lymphocytes/100 WBC (Bld) 47.2 % Normal 20.5-60.0 [facility] Comment on above: Performed By: #### C BC ####[facility] [address] [place] [id number]. Jessyarmando Morris MANUAL DIFF REQ NO Normal [facility] Comment on above: Performed By: #### C BC ####[facility] [address] [place] [id number]. Janel Arturo MCH (RBC) [Entitic mass] 32.4 pg Normal 26.7-34.0 [facility] Comment on above: Performed By: #### C BC ####[facility] [address] [place] [id number]. Janel Arturo MCHC (RBC) [Mass/Vol] 33.8 g/dL Normal 29.9-35.2 [facility] Comment on above: Performed By: #### C BC ####[facility] [address] [place] [id number]. Janel Arturo MCV (RBC) [Entitic vol] 95.9 fL Normal 81.0-99.0 [facility] Comment on above: Performed By: #### C BC ####[facility] [address] [place] [id number]. Janel Morris MONO # 0.5 103/ul Normal 0.3-0.8 [facility] Comment on above: Performed By: #### C BC ####[facility] [address] [place] [id number]. Janel Morris Monocytes/100 WBC (Bld) 10.0 % Normal 1.7-12.0 [facility] Comment on above: Performed By: #### C BC ####[facility] [address] [place] [id number]. Janel Morris NEUT # 2.0 103/ul Normal 1.4-6.5 [facility] Comment on above: Performed By: #### C BC ####[facility] [address] [place] [address]Dr. Janel Morris Neutrophils/100 WBC (Bld) 37.9 % Critically low 43.0-75.0 [facility] Comment on above: Performed By: #### C BC ####[facility] [address]oumf[address] [place] [id number]. Janel Morris Platelet mean volume (Bld) [Entitic vol] 8.9 fL Critically low 9.5-13.5 [facility] Comment on above: Performed By: #### C BC ####[facility] X[address]qytqbp[address] [place] [id number]. Janel Morris PLT 279 103/ul Normal 150-450 [facility] Comment on above: Performed By: #### C BC ####[facility] [address] [place], [place] [id number]. Janel Morris RBC 4.17 106/ul Critically low 4.20-5.40 The [facility] Comment on above: Performed By: #### C BC ####[facility] [address] [place] [id number]. Janel Morris WBC 5.3 103/ul Normal 4.0-11.0 [facility] Comment on above: Performed By: #### C BC ####[facility] [address] [place] [id number]. Janel Morris CRPon 02-03-2022 CRP [Mass/Vol] mg/L Normal <=1.0 The [facility] Comment on above: Performed By: #### H STROPN, CMP, CRP ####[facility] [address]ys[address]arr[address] [place] [id number]. Janel [facility] Covid-19 PCR (CVDTB)on 01-11 SARS-CoV-2 (COVID-19) RNA PADMINI+probe Ql (Unsp spec) Not detected Normal NOT DETECTED [facility] Comment on above: Result Comment: When diagnostic testing is negative, the possibility of a false negative should be considered in the context of a patient's recent exposures and the presence of clinical signs and symptoms consistent with SARS-CoV-2. This test is not yet approved or cleared by the [place] FDA. When there are no FDA-approved or cleared tests available, and other criteria are met, FDA can make tests available under an emergency access mechanism called an Emergency Use Authorization (EUA). The EUA for this test is supported by the Temple of Health and Human Service's declaration that circumstances exist to justify the emergency use of in vitro diagnostics for the detection and/or diagnosis of the virus that causes COVID-19. This EUA will remain in effect for the duration of the COVID-19 declaration justifying emergency of IVDs, unless it is terminated or revoked by the FDA (after which the test may no longer be used). Performed By: #### C VDTBH ####[facility] [address] [place] [id number]. Janel [facility] D-DIMERon 02-03-2022 D-DIMER 0.30 mg/L FEU Normal <=0.59 The [facility] Comment on above: Performed By: #### D DIM ####[facility] [address] [place] [id number]. [facility] D-DIMER COMMENTS SEE BELOW Normal The [facility] Comment on above: Result Comment: Incr eases in D-Dimer concentration observed with thromboembolic events can be variable due to localization, size, and age of the thrombus. Therefore, a thromboembolic event cannot be diagnosed with certainty on the basis of the reference range. D-Dimers may also be elevated for a variety of disorders including: advanced age, , coronary disease, cancer, liver disease, infection, inflammation, hematoma, DIC, trauma, post-surgery, diabetes, thrombolytic or anticoagulant therapy, stress, and generalized hospitalization. Performed By: #### D DIM ####[facility] [address] [place] [address]Dr. Janel Morris PROF 14(COMP METB)on 022 Albumin [Mass/Vol] 3.9 g/dL Normal 3.4-5.0 [facility] Comment on above: Performed By: #### H STROPN, CMP, CRP ####[facility] [address] [place] [address]Dr. Janel Morris Albumin/Globulin [Mass ratio] 1.2 {ratio} Normal [facility] Comment on above: Performed By: #### H STROPN, CMP, CRP ####[facility] [address] [place] [address]Dr. Janel Morris ALP [Catalytic activity/Vol] 74 U/L Normal 46-116 [facility] Comment on above: Performed By: #### H STROPN, CMP, CRP ####[facility] [address] [place] [address]Dr. Janel Morris ALT [Catalytic activity/Vol] 15 U/L Normal 14-59 [facility] Comment on above: Performed By: #### H STROPN, CMP, CRP ####[facility] [address] [place] [address]Dr. Janel Morris Anion gap [Moles/Vol] 12.7 mmol/L Normal [facility] Comment on above: Performed By: #### H STROPN, CMP, CRP ####[facility] [address] [place] [address]Dr. Janel Morris AST [Catalytic activity/Vol] 15 U/L Normal 15-37 [facility] Comment on above: Performed By: #### H STROPN, CMP, CRP ####[facility] [address] [place] [address]Dr. Janel Morris Bilirubin [Mass/Vol] 0.4 mg/dL Normal 0.2-1.0 [facility] Comment on above: Performed By: #### H STROPN, CMP, CRP ####[facility] [address] [place] [address]Dr. Janel Morris Calcium [Mass/Vol] 9.4 mg/dL Normal 8.5-10.1 [facility] Comment on above: Performed By: #### H STROPN, CMP, CRP ####[facility] [address] [place] [address]Dr. Janel Morris Chloride [Moles/Vol] 105 mmol/L Normal 98-107 [facility] Comment on above: Performed By: #### H STROPN, CMP, CRP ####[facility] [address] [place] [address]Dr. Janel Morris CO2 [Moles/Vol] 26.1 mmol/L Normal 21.0-32.0 [facility] Comment on above: Performed By: #### H STROPN, CMP, CRP ####[facility] [address] [place] [address]Dr. Janel Morris Creatinine [Mass/Vol] 1.02 mg/dL Normal 0.55-1.02 [facility] Comment on above: Performed By: #### H STROPN, CMP, CRP ####[facility] [address] [place] [address]Dr. Janel Morris EGFR-AF ALGERIAN >60 Normal >=60 [facility] Comment on above: Performed By: #### H STROPN, CMP, CRP ####[facility] [address] [place] [address]Dr. Janel Morris EGFR-NON AF ALGERIAN 54 mL/min/1.73m2 Critically low >=60 [facility] Comment on above: Performed By: #### H STROPN, CMP, CRP ####[facility] [address] [place] [address]Dr. Janel Morris Globulin (S) [Mass/Vol] 3.3 g/dL Normal [facility] Comment on above: Performed By: #### H STROPN, CMP, CRP ####[facility] [address] [place] [address]Dr. Janel Morris Glucose [Mass/Vol] 94 mg/dL Normal 74-106 [facility] Comment on above: Performed By: #### H STROPN, CMP, CRP ####[facility] [address] [place] [address]Dr. Janel Morris Potassium [Moles/Vol] 3.8 mmol/L Normal 3.5-5.1 [facility] Comment on above: Performed By: #### H STROPN, CMP, CRP ####[facility] [address] [place] [address]Dr. Janel Morris Protein [Mass/Vol] 7.2 g/dL Normal 6.4-8.2 [facility] Comment on above: Performed By: #### H STROPN, CMP, CRP ####[facility] [address] [place] [address]Dr. Janel Morris Sodium [Moles/Vol] 140 mmol/L Normal 136-145 [facility] Comment on above: Performed By: #### H STROPN, CMP, CRP ####[facility] [address] [place] [address]Dr. Janel Morris Urea nitrogen [Mass/Vol] 20.0 mg/dL Critically high 7.0-18.0 [facility] Comment on above: Performed By: #### H STROPN, CMP, CRP ####[facility] [address] [place] [address]Dr. Janel Morris Urea nitrogen/Creatinine [Mass ratio] 19.6 mg/mg Normal [facility] Comment on above: Performed By: #### H STROPN, CMP, CRP ####[facility] [address] [place] [address]Dr. Janel Morris SED RATE [facility] 2021 SED RATE 12 mm/hr Normal <=30 [facility] Comment on above: Result Comment: Prev iously reported as: 20 On 02/03/2022 20:45 By KD3 Performed By: #### S EDR #### [facility] [address] [place], [place] [address] Dr. Janel Morris TROPONIN, HIGH SENSITIVITYon 02-03-2022 HSTROP 4.4 pg/mL Normal 4.0-51.3 [facility] Comment on above: Result Comment: CUT- OFF POINTS HAVE BEEN ESTABLISHED BASED ON THE FOURTH UNIVERSAL DEFINITIONS OF MYOCARDIAL INFARCTION. THE UPPER REFERENCE LIMIT (URL) OF TROPONIN, DEFINED THE 99TH PERCENTILE OF cTnI DISTRIBUTION IN A REFERENCE POPULATION, HAS BEEN CONFIRMED THE DECISION THRESHOLD FOR [place] DIAGNOSIS. Performed By: #### H STROPN, CMP, CRP ####[facility] [address] [place], [place] [address]rDr. Janel Morris HSTROP 4.4 pg/mL Normal 4.0-51.3 [facility] Comment on above: Result Comment: CUT- OFF POINTS HAVE BEEN ESTABLISHED BASED ON THE FOURTH UNIVERSAL DEFINITIONS OF MYOCARDIAL INFARCTION. THE UPPER REFERENCE LIMIT (URL) OF TROPONIN, DEFINED THE 99TH PERCENTILE OF cTnI DISTRIBUTION IN A REFERENCE POPULATION, HAS BEEN CONFIRMED THE DECISION THRESHOLD FOR [place] DIAGNOSIS. Performed By: #### H STROPN ####[facility] [address] [place], [place] [address]Dr. Janel Morris XR CHEST 1 Von 02-03-2022 XR CHEST 1 V EXAMINATION: XR CHES T 1 V HISTORY: Shortness of breath COMPARISON: None. TECHNIQUE: Portable chest FINDINGS: The lung parenchyma is free of consolidation or infiltrate. No pneumothorax or pleural effusion. The cardiac, mediastinal and hilar contours are normal. The visualized osseous structures exhibit no gross abnormality. IMPRESSION: No acute cardiopulmonary abnormality. Electronically authenticated by: APOLLO HUBER Date: 2022-02-03 21:05 Normal [facility] Covid-19 PCR (CVDTBH)on 05-12 SARS-CoV-2 (COVID-19) RNA PADMINI+probe Ql (Unsp spec) Not detected Normal NOT DETECTED [facility] Comment on above: Result Comment: This test is not yet approved or cleared by the [place] FDA. When there are no FDA-approved or cleared tests available, and other criteria are met, FDA can make tests available under an emergency access mechanism called an Emergency Use Authorization (EUA). The EUA for this test is supported by the [employer] Clerk of Health and Human Service's (HHS's) declaration that circumstances exist to justify the emergency use of in vitro diagnostics for the detection and/or diagnosis of the virus that causes COVID-19. This EUA will remain in effect (meaning this test can be used) for the duration of the COVID-19 declaration justifying emergency of IVDs, unless it is terminated or revoked by FDA (after which the test may no longer be used). When diagnostic testing is negative, the possibility of a false negative should be considered in the context of a patient's recent exposures and the presence of clinical signs and symptoms consistent with SARS-CoV-2. Performed By: #### C [facility] #### [facility] [address] [place] [address] Dr. Janel Morris Social History Date Type Detail Facility Start: 02-23-2023 Tobacco smoking stat [facility] Ex-smoker (finding) [facility] Start: 1950 Sex Assigned At Female F [facility] Sex Assigned At [facility] Tobacco smoking status No Smokin g Status Entered [facility] Vital Signs Date Time Vital Sign Value Performing Clinician Facility 09-11-2023 08:310400 Body height 165.1 cm [facility] 09-11-2023 08:31-0400 Body mass index (BMI) [Ratio] 25.7 kg/m2 [facility] 09-11-2023 [id number] Body weight 70.3 kg [facility] 09-11-2023 08:31-0400 Diastolic blood pressure 76 mm[Hg] [facility] 09-11-2023 08:31-0400 Heart rate 79 /min [facility] 09-11-2023 08:31-0400 Systolic blood pressure 121 mm[Hg] [facility] 08-21-2023 08:44-0400 Body height 165.1 cm [facility] 08-21-2023 08:44-0400 Body mass index (BMI) [Ratio] 2.5 kg/m2 [facility] 08-21-2023 08:44-0400 Body temperature 97.8 [degF] [place] 08-21-2023 08:44-0400 Body weight 6.86 kg [facility] 08-21-2023 08:44-0400 Diastolic blood pressure 79 mm[Hg] [facility] 08-21-2023 08:44-0400 Heart rate 84 /min [facility] 08-21-2023 08:44-0400 Systolic blood pressure 144 mm[Hg] [facility] 02-23-2023 09:15-0400 Body height 165.1 cm Amina Tyler Other [facility] [employer] Other 02-23-2023 09:15-0400 Body mass index (BMI) [Ratio] 25.96 kg/m2 Amina Tyler Other [employer] Other 02-23-2023 09:15-0400 Body weight 70.76 kg Amina Tyler Other [employer] Other 02-23-2023 09:15-0400 Diastolic blood pressure 80 mm[Hg] Amina Tyler Other [employer] Other 02-23-2023 09:15-0400 SaO2% (BldA) [Mass fraction] 99 % Amina Tyler Other [employer] Other 02-23-2023 09:15-0400 Systolic blood pressure 128 mm[Hg] Amina Tyler Other [employer] Other Evaluation note 02-23-2023 Note Date & Type Note Facility 02-23-2023 Evaluation note Encounter Date Diagnosis Assessment Notes Feb, Benign paroxysmal positional vertigo, unspecified laterality (ICD-10 - H81.10) Discussed diagnosis with patient and instructed to take medications as prescribed. Antivert 25 mg po Q6 hours prn. Do not lie flat on your back. Prop yourself up slightly and keep eyes open - this may reduce the spinning feeling. Move slowly so that you do not fall. Do not drive while you are having vertigo. Gave order for PT as well. [facility] [employer] Other Chief complaint+Reason for visit Narrative Note Date & Type Note Facility Chief complaint+Reason for visit Narrative Reason for Visit Acute effusion of both middle ears Decreased hearing of left ear Tinnitus of left ear Vertigo [facility] Work Phone: Evaluation + Plan note Note Date & Type Note Facility Evaluation + Plan note No data available for this section [facility] Evaluation note Note Date & Type Note Facility Evaluation note Diagnosis Onset Date Acute effusion of both middle ears acute Decreased hearing of left ear acute Tinnitus of left ear acute Vertigo acute [facility] Work Phone: History general Narrative - Reported Note Date & Type Note Facility History general Narrative - Reported Type Medical History Syncope and collapse Medical History Pain in right shoulder Medical History Situational anxiety Surgical History B cataracts 2019 Surgical History Carpal tunnel release- right foreman nd 2003 Surgical History Colonoscopy 2013 Hospitalization History see surgical hx [facility] [employer] Other Hospital Discharge instructions Note Date & Type Note Facility Hospital Discharge instructions No data available for this section [facility] Hospital Discharge instructions Note Date & Type Note Facility Hospital Discharge instructions Ambulatory OrdersReferral to ENT Time Frame: 09/11/23, Location: None Selected [facility] Work Phone: Progress note Note Date & Type Note Facility Progress note No data available for this section [facility] Summary Purpose Family History Relationship Condition Age at Onset Recorded Date/T shana father Aneurysm Unknown Unknown Not Specified Unknown Family history of pancreatic cancer Unkno wn Advance Directives Advance Directive Response Recorded Date/ Time Advance Directives No August 20 024 8:34am Additional Source Comments INFORMATION SOURCE (unrecogn ized section and content) DATE CREATED AUTHOR 05/14/2022 [facility] DATE CREATED AUTHOR AUTHOR'S ORGANIZ ATION 08/19/2023 [facility] REASON FOR VISIT (unrecogniz ed section and content) DIZZY SPELLS Patient Care team informatio n (unrecognized section and content) Team Status: Active Member Role Status Dates Amina Tyler MD Primary Care Provider Active Team Status: Active Member Role Status Dates Amina Tyler MD Primary Care Provide r, Attending Provider Active Start: August 17, 2023 Team Status: Inactive Member Role Status Dates Amina Tyler MD Primary Care Provide r, Attending Provider Active Start: August 21, 2023 End: August 21, 2023 Team Status: Inactive Member Role Status Dates Amina Tyler MD Primary Care Provide r, Attending Provider Active Start: September 11, 2023 End: September 11, 2023 Goals (unrecognized section and content) Goals may be documented in a n alternate section FOR RECORDS PERTAINING TO PATIENTS WHO ARE OR HAVE BEEN ENROLLED IN A CHEMICAL DEPENDENCY/SUBSTANCEABUSE PROGRAM, SOME INFORMATION MAY BE OMITTED. This clinical summary was aggregated from multiple sources. Caution should be exercised in using it in the provision of clinical care. This summary normalizes information from multiple sources, and as a consequence, information in this document may materially change the coding, format and clinical context of patient data. In addition, data may be omitted in some cases. CLINICAL DECISIONS SHOULD BE BASED ON THE PRIMARY CLINICAL RECORDS. [employer] provides no warranty or guarantee of the accuracy or completeness of information in this document.
--- NOTE | 2023-11-22 07:38 | CT_ITS ---
[address] [address] Patient Name: JANEEN PATTEN MRN: [id number] date: 1950 Sex: F Assigned Patient Location: ER Current Patient Location: ER Accession/Order Number: [id number] Exam Date: 11/22/2023 07:52 Report Date: 11/22/2023 08:20 At the request of: MARGUERITE CURIEL Procedure: CT head/brain wo con EXAMINATION: CT head/brain wo con, 11/22/2023 7:52 AM EDT HISTORY: R leg numbness COMPARISON: 08/17/2023 TECHNIQUE: CT scan of the head was performed without IV contrast. CT dose reduction technique was used, including Automated Exposure Control. FINDINGS: BRAIN: No edema, hemorrhage, mass, acute infarction, or inappropriate atrophy. CSF SPACES: No hydrocephalus, subarachnoid hemorrhage, or mass. Appropriate for age. SKULL: No fracture, mass, or other significant visible lesion. SINUSES: No significant mucosal thickening or fluid on the limited views. ORBITS: No appreciable abnormality on the limited views. OTHER: Negative CT/CT head/brain wo con IMPRESSION: No acute intracranial abnormality Electronically authenticated by: APOLLO FOX Date: 11/22/2023 08:20
--- NOTE | 2023-11-22 07:48 | ED_ITS ---
HPI HPI - General Adult General Chief complaint: Neuro Symptoms/Deficit Stated complaint: NUMBING OF LEGS Time Seen by Provider: 11/22/23 07:23 Source: patient Mode of arrival: walk-in Limitations: no limitations History of Present Illness HPI narrative: Patient presents to ED complaining of intermittent right lower extremity tingling. Patient reports that on and off for the past few months she feels like her right lower extremity from about the knee down will get tingly and numb. It comes and goes it seems worse in the morning. She denies trauma knee pain low back pain. She states that is not really weakness it is more like tingling and numbness on and off. She says it feels better now and has normal sensation currently. Normal distal pulses and strength. Also on the way into the ER today she said her left hand was a little bit tingly but she was doing a lot of yard work yesterday. She has not seen her doctor for this and she was worried about a possible stroke so she came into the ER for further evaluation. No headache no dizziness no visual changes. No chest pain or shortness of breath. Vital signs stable and patient is alert oriented no acute distress no neurol ogical deficit Related Data Home Medications ?Medication ?Instructions ?Recorded ?Confirmed No Known Home Medications 08/17/23 08/17/23 Allergies Allergy/AdvReac Type Severity Reaction Status Date / Time No Known Drug Allergies Allergy Verified 11/22/23 06:31 Opioid HPI Opioid Management Most Recent Opioid Data: No Data to Display Review of Systems ROS Status of ROS 10 or more systems reviewed and unremark able except as noted in history and below PFSH PFSH Social History Smoking status: Never smoker Exam Narrative Exam Narrative: Time Seen: [] Vital Signs: [Per nurse's notes.] General: [Alert] Skin: [Warm, dry, no rash.] Head: [Normocephalic, atraumatic.] Neck: [Supple, trachea midline.] Eye: [Pupils are equal, round and reactive to light, extraocular movements are intact, normal conjunctiva.] Ears, nose, mouth and throat: oral mucosa moist. Cardiovascular: [Regular rate and rhythm, no murmur.] Respiratory: [Lungs are clear to auscultation, respirations are non-labored, breath sounds are equal.] Chest wall: [No tenderness, no deformity.] Gastrointestinal: [Soft, nontender, non distended, normal bowel sounds.] MSK: 5 out of 5 muscle strength x 4 extremities no calf pain or edema Lymphatics: [No lymphadenopathy.] Psychiatric: [Cooperative, appropriate mood & affect.] Neurological: [Alert and oriented to person, place, time, and situation, no focal neurological deficit observed.] Constitutional Vital Signs, click to edit/add: Last Vital Signs Temp 98 F 11/22/23 06:26 Pulse 64 11/22/23 06:26 Resp 18 11/22/23 06:26 BP 163/67 H 11/22/23 06:26 Pulse Ox 98 11/22/23 06:26 Course Vital Signs Vital signs: Vital Signs Temperature 98 F 11/22/23 06:26 Pulse Rate 64 11/22/23 06:26 Respiratory Rate 18 11/22/23 06:26 Blood Pressure 163/67 H 11/22/23 06:26 Pulse Oximetry 98 11/22/23 06:26 Temperature 98 F 11/22/23 06:26 Pulse Rate 64 11/22/23 06:26 Respiratory Rate 18 11/22/23 06:26 Blood Pressure 163/67 H 11/22/23 06:26 Pulse Oximetry 98 11/22/23 06:26 Medical Decision Making MDM Narrative Medical decision making narrative: Patient's labs and imaging are nonacute. No evidence of stroke. NIH scale 0. I think this is most likely a peripheral nerve issue starting at the knee or maybe the low back. Electrolytes are normal. Vital stable. No fever. Patient instructed to follow-up with her family doctor for either further imaging or testing such as EMG studies. Return to ED if worsening symptoms. Patient's comfortable care plan for home Differential Diagnosis Differential Diagnosis: Stroke, nerve impingement, peripheral neuropathy, lumbar disc disease Medical Records Medical records reviewed: Yes I reviewed the patient's medical records Lab Data Lab results reviewed: Yes I reviewed the patient's lab results Labs: Lab Results 11/22/23 Range/Units 07:45 WBC 3.9 L (4.0-11.0) 10^3/uL RBC 4.27 (4.20-5.40) 10^6/uL Hgb 13.6 (12.0-16.0) g/dL Hct 42.2 (36.0-48.0) % MCV 98.8 (81.0-99.0) fL MCH 31.9 (26.7-34.0) pg MCHC 32.2 (29.9-35.2) g/dL RDW 12.6 (11.0-15.0) % Plt Count 259 (150-450) 10^3/uL MPV 8.9 L (9.5-13.5) fL Neut % (Auto) 55.6 (43.0-75.0) % Lymph % (Auto) 31.2 (20.5-60.0) % Pershing % (Auto) 8.6 (1.7-12.0) % Eos % (Auto) 2.3 (0.9-7.0) % Baso % (Auto) 2.0 (0.2-2.0) % Neut # (Auto) 2.2 (1.4-6.5) 10^3/uL Lymph # (Auto) 1.2 (1.2-3.8) 10^3/uL Pershing # (Auto) 0.3 (0.3-0.8) 10^3/uL Eos # (Auto) 0.1 (0.0-0.7) 10^3/uL Baso # (Auto) 0.1 (0.0-0.1) 10^3/uL Abs Immat Gran (auto) 0.01 (0.00-0.03) 10^3/uL Imm/Tot Granulo (auto) 0.3 (0.0-0.5) % Sodium 144 (136-145) mmol/L Potassium 4.2 (3.5-5.1) mmol/L Chloride 107 (98-107) mmol/L Carbon Dioxide 26.1 (21.0-32.0) mmol/L Anion Gap 15.1 BUN 20.0 H (7.0-18.0) mg/dL Creatinine 0.79 (0.55-1.02) mg/dL Est GFR ( Amer) >60 (>=60) Est GFR (Non-Af Amer) >60 (>=60) BUN/Creatinine Ratio 25.3 Glucose 92 (74-106) mg/dL Calcium 9.2 (8.5-10.1) mg/dL Magnesium 2.5 H (1.8-2.4) mg/dL Total Bilirubin 0.4 (0.2-1.0) mg/dL AST 14 L (15-37) U/L ALT 17 (14-59) U/L Alkaline Phosphatase 71 (46-116) U/L Total Protein 7.1 (6.4-8.2) g/dL Albumin 3.5 (3.4-5.0) g/dL Globulin 3.6 g/dL Albumin/Globulin Ratio 1.[address] scan - head: Radiologist's impression: ITS Impressions Head CT 11/22/23 07:38 IMPRESSION: No acute intracranial abnormality Electronically authenticated by: APOLLO FOX Date: 11/22/2023 08:20 Discharge Plan Discharge Stand Alone Forms: Portal Instructions Chief Complaint: Neuro Symptoms/Deficit Clinical Impression: Tingling in extremities Patient Disposition: Home, Self-Care Time of Disposition Decision: 09:04 Condition: Good Mode of Transportation: Private Vehicle Prescriptions / Home Meds: No Action No Known Home Medications Print Language: Eritrean Instructions: Paresthesia (ED) Referrals: Amina Jolly MD [Primary Care Provider] - 1 week Procedures ED Procedure Instructions Procedures Procedures: NIH stroke scale: Date/Time: [] Level of consciousness: _ 0 Current month and age: _0 Open and close eyes/registration representative release hand: 0_ Best gaze: _0 Visual field testing: _0 Facial paresis: _0 Motor function left arm: _0 Motor function right arm: _0 Motor function left leg: _0 Motor function right leg: _0 Limb ataxia: _0 Sensory: _0 Best language: _0 Dysarthria: _0 Extinction and inattention: _0 Total Score: [] 0 (severe deficit > 22) Notes: []
[2023-11-22 08:00] LABS: Basophils Absolute Auto 0.1 10^3/uL (0.0-0.1); Eosinophils Absolute Auto 0.1 10^3/uL (0.0-0.7); Eosinophils Percent Auto 2.3 % (0.9-7.0); Hematocrit 42.2 % (36.0-48.0); Hemoglobin 13.6 g/dL (12.0-16.0); Immature Granulocytes Abs Auto 0.01 10^3/uL (0.00-0.03); Immature Granulocytes Pct Auto 0.3 % (0.0-0.5); Lymphocytes Absolute Auto 1.2 10^3/uL (1.2-3.8); Lymphocytes Percent Auto 31.2 % (20.5-60.0); Mean Corpuscular HGB Conc 32.2 g/dL (29.9-35.2); Mean Corpuscular Hemoglobin 31.9 pg (26.7-34.0); Mean Corpuscular Volume 98.8 fL (81.0-99.0); Mean Platelet Volume 8.9 fL (9.5-13.5); Monocytes Absolute Auto 0.3 10^3/uL (0.3-0.8); Monocytes Percent Auto 8.6 % (1.7-12.0); Neutrophils Absolute Auto 2.2 10^3/uL (1.4-6.5); Neutrophils Percent Auto 55.6 % (43.0-75.0); Platelet Count 259 10^3/uL (150-450); Red Blood Count 4.27 10^6/uL (4.20-5.40); Red Cell Distribution Width 12.6 % (11.0-15.0); White Blood Count 3.9 10^3/uL (4.0-11.0)
[2023-11-22 08:42] LABS: Alanine Aminotransferase 17 U/L (14-59); Albumin Level 3.5 g/dL (3.4-5.0); Alkaline Phosphatase 71 U/L (46-116); Anion Gap 15.1; Aspartate Amino Transferase 14 U/L (15-37); BUN Creatinine Ratio 25.3; Bilirubin Total 0.4 mg/dL (0.2-1.0); Calcium 9.2 mg/dL (8.5-10.1); Carbon Dioxide 26.1 mmol/L (21.0-32.0); Chloride 107 mmol/L (98-107); Estimated GFR (African America >60 (>=60); Estimated GFR (Non-African Ame >60 (>=60); Globulin 3.6 g/dL; Glucose 92 mg/dL (74-106); Magnesium 2.5 mg/dL (1.8-2.4); Potassium 4.2 mmol/L (3.5-5.1); Sodium 144 mmol/L (136-145); Total Protein 7.1 g/dL (6.4-8.2)
--- NOTE | 2023-11-22 08:59 | ECG_ITS ---
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
== END 2023-11-22 09:35 | disposition home or self-care (01) ==
PROVIDERS: Emergency Provider Emergency Medicine; PCP Family Medicine
DX: R20.2 Paresthesia of skin (principal)
CPT/HCPCS: 36415; 70450; 80053; 83735; 85025; 93005; 99285

== ENCOUNTER 2023-12-15 06:33 | Outpatient (OUT) | payer MEDICARE, SELFPAY ==
--- NOTE | 2023-12-15 06:36 | MR_ITS ---
[address] [address] Patient Name: JANEEN PATTEN MRN: [facility]:[id number] date: 1950 Sex: F Assigned Patient Location: MRI Current Patient Location: Accession/Order Number: [id number] Exam Date: 12/15/2023 06:45 Report Date: 12/18/2023 00:34 At the request of: ZAHIDA MALHOTRA Procedure: MR head/brain wo/w con EXAM: MR head/brain wo/w con HISTORY: Left Sided Tinnitus, Sensorineural Hearing Loss COMPARISON: CT brain 11/22/2023 TECHNIQUE: Multisequence MRI brain was performed with and without intravenous contrast. FINDINGS: There is no restricted diffusion to suggest acute infarct. There is no midline shift, mass effect, or abnormal extraaxial fluid collections. There are no abnormal parenchymal or leptomeningeal enhancement. The cortical sulci and ventricular system are within normal limits for the age. Multiple nonspecific scattered foci of T2/FLAIR signal abnormality are identified in the supratentorial white matter, particularly in the left parietal lobe, likely reflect chronic microvascular ischemic changes. The internal auditory canals and cerebellopontine angles are unremarkable, without masses or abnormal enhancement. The bilateral cranial nerves VII and VIII are unremarkable. No abnormality is seen involving the membranous labyrinth. The major intracranial flow voids are visualized. The cerebellar tonsils are normal in position. The orbits demonstrate no suspicious enhancement or any focal lesions. The paranasal sinuses show no air-fluid level. Mild mucosal thickening of left sphenoid and bilateral ethmoid air cells. The mastoid air cells are clear. The calvarium and extracranial soft tissues are unremarkable. MR/MR head/brain wo/w con IMPRESSION: No acute intracranial abnormality or abnormal intracranial enhancement. Mild chronic microvascular ischemic and involutional changes. Clear internal auditory canals and cerebellopontine angles. Electronically authenticated by: VANI LUNA Date: 12/18/2023 00:34
--- OUTSIDE RECORDS SUMMARY | 2023-12-15 06:37 | XMS_ITS | CCD ---
Author Organization [facility] Care Team Providers Care Mammography Technician Name Role Phone JAYSON, DR AMINA Garduno [...] Unavailable KLIPPERAPOLLO Consulting Unavailable Tyler, Amina Unavailable TYLERAMINA Primary Care Physician Padma Joyner Attending Unavailable Grechconcepcion, Padma Admitting Unavailable Grechny, Padma Admitting Unavailable Grechny, Padma Attending Unavailable JESENIA, JACKSON Mccabe Attending Unavailable TYLER, AMINA Referring Unavailable TIMMISZAHIDA Attending Unavailable TYLER, AMINA Referring Unavailable Medications Current Medications Medication Drug Class(es) Dates [...] 500 MCG ORAL TABLET, *Pick strength-form from [employer] for eRX* Apr, Active Problems Active Problems Problem Classification Problem Date [...] Viramontes MD Transcribed by: JORDYN Technologist: LIZZ Tamayo [facility] Automated epithelial cells c ount in urine sediment (number/area)on 08-17-2023 Epithelial cells Auto (Urine sed) [#/Area] RARE #/LPF NONE/RARE [facility] Automated leukocytes count i n urine sediment (number/area)on 08-17-2023 WBC Auto (Urine sed) [#/Area] 0-2 #/HPF 0-2 [facility] Automated urine specific gra vity by refractometryon 08-17-2023 Specific gravity Refractometry automated (U) [Rel density] 1.015 1.005-1.025 [facility] Basophils Auto (Bld) [#/Vol] on 08-17-2023 Basophils (Bld) [#/Vol] 0.1 10 3/uL 0.0-0.1 [facility] Basophils/100 WBC Auto (Bld) on 08-17-2023 Basophils/100 WBC (Bld) 1.4 % 0.2-2.0 [facility] Bilirubin Auto test strip (U ) [Mass/Vol]on 08-17-2023 Bilirubin (U) [Mass/Vol] Negative NEGATIVE [facility] Casts typing in urine sedime nt by light microscopyon 08-17-2023 Casts LM Nom (Urine sed) NONE SEEN #/LPF NONE SEEN [facility] Color Auto (U)on 08-17-2023 Color (U) LT. YELLOW YELLOW [facility] Consent for Treatmenton Consent for Treatment [id number]#1. 00TIFF Normal [facility] Eosinophils/100 WBC Auto (Bl d)on 08-17-2023 Eosinophils/100 WBC (Bld) 1.5 % 0.9-7.0 [facility] Erythrocyte distribution wid th Auto (RBC) [Ratio]on 08-17-2023 Erythrocyte distribution width (RBC) [Ratio] 11.9 % 11.0-15.0 [facility] Estimated glomerular filtrat ion rate (GFR) non- Americanon 08-17-2023 GFR/1.73 sq M.predicted among non-blacks MDRD (S/P/Bld) [Vol rate/Area] mL/min/{1.73_m2} >=60 [facility] Globulin Calc (S) [Mass/Vol] on 08-17-2023 Globulin (S) [Mass/Vol] 3.8 g/dL [facility] Hematocrit Auto (Bld) [Volum e fraction]on 08-17-2023 Hematocrit (Bld) [Volume fraction] 42.4 % 36.0-48.0 [facility] Hemoglobin [Mass/volume] in Bloodon 08-17-2023 Hemoglobin (Bld) [Mass/Vol] 14.1 g/dL 12.0-16.0 [facility] INR in Platelet poor plasma by Coagulation assayon 08-17-2023 INR Coag (PPP) [Relative time] {INR} [facility] Comment on above: DESIRED INR:2.0-3.0 CONDITIONS NOT LISTED BELOW2.5-3.5 FOR PROSTHETIC HEART VALVE REPLACEMENT2.5-3.5 RECURRENT THROMBOSIS Ketones Auto test strip (U) [Mass/Vol]on 08-17-2023 Ketones (U) [Mass/Vol] Negative NEGATIVE [facility] Laboratory - Chemistry and C hemistry - challengeon 08-17-2023 Albumin [Mass/Vol] 3.6 g/dL 3.4-5.0 [facility] ALP [Catalytic activity/Vol] 82 U/L 46-116 [facility] ALT [Catalytic activity/Vol] 18 U/L 14-59 [facility] AST [Catalytic activity/Vol] 21 U/L 15-37 [facility] Bilirubin [Mass/Vol] 0.4 mg/dL 0.2-1.0 [facility] Calcium [Mass/Vol] 9.3 mg/dL 8.5-10.1 [facility] Chloride [Moles/Vol] 102 mmol/L 98-107 [facility] CO2 [Moles/Vol] 23.6 mmol/L 21.0-32.0 [facility] Creatinine [Mass/Vol] 0.78 mg/dL 0.55-1.02 [facility] GFR/1.73 sq M.predicted MDRD (S/P/Bld) [Vol rate/Area] mL/min/{1.73_m2} >=60 [facility] Glucose [Mass/Vol] 127 mg/dL 74-106 [facility] Potassium [Moles/Vol] 3.3 mmol/L 3.5-5.1 [facility] Protein [Mass/Vol] 7.4 g/dL 6.4-8.2 [facility] Sodium [Moles/Vol] 140 mmol/L 136-145 [facility] TSH Qn 2.187 m[IU]/L 0.358-3.740 [facility] Urea nitrogen [Mass/Vol] 19.0 mg/dL 7.0-18.0 [facility] Urea nitrogen/Creatinine [Mass ratio] 24.4 mg/mg [facility] - Hematology and Cell countson 08-17-2023 Immature granulocytes/100 WBC (Bld) 1.2 % 0.0-0.5 [facility] - Microbiology an d Antimicrobial susceptibilityon 08-17-2023 SARS-CoV-2 (COVID-19) RNA PADMINI+probe Ql (Unsp spec) Negative NEGATIVE [facility] Comment on above: This test has not [...] Auto (Bld) [#/Vol] 6.7 10 3/uL 4.0-11.0 [facility] Lymphocytes Auto (Bld) [#/Vo l]on 08-17-2023 Lymphocytes (Bld) [#/Vol] 3.2 10 3/uL 1.2-3.8 [facility] Lymphocytes/100 WBC Auto (Bl d)on 08-17-2023 Lymphocytes/100 WBC (Bld) 47.4 % 20.5-60.0 [facility] MCH Auto (RBC) [Entitic mass ]on 08-17-2023 MCH (RBC) [Entitic mass] 32.4 pg 26.7-34.0 [facility] MCHC Auto (RBC) [Mass/Vol]on 08-17-2023 MCHC (RBC) [Mass/Vol] 33.3 g/dL 29.9-35.2 [facility] MCV Auto (RBC) [Entitic vol] on 08-17-2023 MCV (RBC) [Entitic vol] 97.5 fL 81.0-99.0 [facility] Monocytes Auto (Bld) [#/Vol] on 08-17-2023 Monocytes (Bld) [#/Vol] 0.6 10 3/uL 0.3-0.8 [facility] Monocytes/100 WBC Auto (Bld) on 08-17-2023 Monocytes/100 WBC (Bld) 9.3 % 1.7-12.0 [facility] Mucus LM Ql (Urine sed)on Mucus Ql (Urine sed) NONE SEEN NONE SEEN [facility] Neutrophils Auto (Bld) [#/Vo l]on 08-17-2023 Neutrophils (Bld) [#/Vol] 2.6 10 3/uL 1.4-6.5 [facility] Neutrophils/100 WBC Auto (Bl d)on 08-17-2023 Neutrophils/100 WBC (Bld) 39.2 % 43.0-75.0 [facility] No Panel Informationon 08-16 Urine Microscopic Review YES [facility] Bedside Influenza Type A Antigen Negative [facility] Comment on above: Negative for Flu A p rotein antigen. Infection due to Flu Acannot be ruled out. Flu A antigen in the sample may bebelow the detection limit of the test. Bedside Influenza Type B Antigen Negative [facility] Comment on above: Negative for Flu B p rotein antigen. Infection due to Flu Bcannot be ruled out. Flu B antigen in the sample may bebelow the detection limit of the test. Eosinophils # (Auto) 0.1 10 3/uL 0.0-0.7 [facility] Immature Granulocyte # (Auto) 0.08 10 3/uL 0.00-0.03 [facility] Troponin I High Sensitivity <4.0 pg/mL 4.0-51.3 [facility] Comment on above: CUT-OFF POINTS HAVE BEEN [...] IN CONJUNCTIONWITH OTHER DIAGNOSTIC AND CLINICAL INFORMATION. Physician Orderon 08-17-2023 Physician Order [id number]#1. 00TIFF Normal [facility] Physician Order [id number]#1. 00TIFF Normal [facility] Platelet mean volume Auto (B ld) [Entitic vol]on 08-17-2023 Platelet mean volume (Bld) [Entitic vol] 9.4 fL 9.5-13.5 [facility] Platelets Auto (Bld) [#/Vol] on 08-17-2023 Platelets (Bld) [#/Vol] 278 10 3/uL 150-450 [facility] Protein Auto test strip (U) [Mass/Vol]on 08-17-2023 Protein (U) [Mass/Vol] Negative NEG/TRACE [facility] Prothrombin time (PT)on PT Coag (PPP) [Time] 9.7 s 9.0-11.6 [facility] RAD - MISCon 08-17-2023 RAD - MISC [id number]#1. 00TIFF Normal [facility] RBC Auto (Bld) [#/Vol]on RBC (Bld) [#/Vol] 4.35 10 6/uL 4.20-5.40 [facility] Serum or plasma albumin/glob ulin mass ratioon 08-17-2023 Albumin/Globulin [Mass ratio] 0.9 {ratio} [facility] Serum or plasma anion gap de terminationon 08-17-2023 Anion gap [Moles/Vol] 17.7 mmol[facility] Specific gravity Auto test s trip (U) [Rel density]on 08-17-2023 Specific gravity (U) [Rel density] CLEAR CLEAR [facility] Urine bacteria detection by automated methodon 08-17-2023 Bacteria Auto Ql (U) NONE SEEN #/HPF NONE SEEN [facility] Urine glucose measurement by test strip (mass/volume)on 08-17-2023 Glucose Test strip (U) [Mass/Vol] Negative NEGATIVE [facility] Urine hemoglobin detection b y automated test stripon 08-17-2023 Hemoglobin Auto test strip Ql (U) Negative NEGATIVE [facility] Urine nitrite detection by a utomated test stripon 08-17-2023 Nitrite Auto test strip Ql (U) SMALL NEGATIVE [facility] Nitrite Auto test strip Ql (U) Negative NEGATIVE [facility] Urine sediment crystal ident ification by light microscopyon 08-17-2023 Crystals LM Nom (Urine sed) None Seen #/HPF None Seen [facility] Urine sediment leukocyte cou nt by microscopy (number/high power field)on 08-17-2023 WBC LM.HPF (Urine sed) [#/Area] 0-2 #/HPF NONE SEEN [facility] Urobilinogen Auto test strip (U) [Mass/Vol]on 08-17-2023 Urobilinogen Qn (U) 0.2 {Zhanna'U}/dL 0.2-1.0 [facility] pH Auto test strip (U)on pH (U) 7.5 [pH] 5.0-9.0 [facility] MG MAMM SCREEN 3D LASHELL CADon 05-09-2022 MG MAMM SCREEN 3D LASHELL CAD Patient: JANEEN PATTEN Exam Date: 05/09/2022 : 1950 Gender:F Ordering : DR AMINA TYLER M.D. Admission #: [id number] Family : Order #: [id number] CLICK HERE TO VIEW EXAM RADIOLOGY REPORT [...] pancreatic cancer at age 76. LOCATION: [facility] BREAST COMPOSITION: Scattered areas fibroglandular density. [...] Lorenzana M.D. on 05/10/2022 at 12:52 Normal [facility] ECHOCARDIO M/2D COMPLETEon 0 02-11-2022 ECHOCARDIO M/2D COMPLETE Patient: JANEEN PATTEN Exam Date: 02/11/2022 : 1950 Gender:F Ordering : DR AMINA TYLER M.D. Admission #: [id number] Family : Order #: [id number] CLICK HERE TO VIEW EXAM ECHOCARDIOGRAM REPORT [...] M.D. on 02/11/2022 at 16:00 Normal [facility] CBC AUTO DIFFon 02-03-2022 BASO # 0.1 103/ul Normal 0.0-0.1 [facility] Comment on above: Performed By: #### C BC ####[facility] [address] [place], [place] [address]Dc. Janel Morris Basophils/100 WBC (Bld) 1.1 % Normal 0.2-2.0 [facility] Comment on above: Performed By: #### C BC ####[facility] [address] [place], [place] [address]GpPauly Morris EO # 0.2 103/ul Normal 0.0-0.7 [facility] Comment on above: Performed By: #### C BC ####[facility] [address] [place] [id number]. Janel Morris Eosinophils/100 WBC (Bld) 3.6 % Normal 0.9-7.0 [facility] Comment on above: Performed By: #### C BC ####[facility] [address] [place] [address]Dr. Janel Morris Erythrocyte distribution width (RBC) [Ratio] 12.7 % Normal 11.0-15.0 [facility] Comment on above: Performed By: #### C BC ####[facility] [address] [place], [place] [address]Dr. Janel Morris Hematocrit (Bld) [Volume fraction] 40.0 % Normal 36.0-48.0 [facility] Comment on above: Performed By: #### C BC ####[facility] [address] [place], [place] [address]Dr. Janel Morris Hemoglobin (Bld) [Mass/Vol] 13.5 g/dL Normal 12.0-16.0 [facility] Comment on above: Performed By: #### C BC ####[facility] [address] [place], [place] [address]Dr. Janel Morris IG # 0.01 10e3/ul Normal 0.00-0.03 [facility] Comment on above: Performed By: #### C BC ####[facility] [address] [place], [place] [address]Dr. Janel Morris IG % 0.2 % Normal 0.0-0.5 [facility] Comment on above: Performed By: #### C BC ####[facility] [address] [place], [place] [address]Dr. Janel Morris LYMPH # 2.5 103/ul Normal 1.2-3.8 [facility] Comment on above: Performed By: #### C BC ####[facility] [address] [place], [place] [address]Dr. Janel Morris Lymphocytes/100 WBC (Bld) 47.2 % Normal 20.5-60.0 [facility] Comment on above: Performed By: #### C BC ####[facility] [address] [place] [id number]. Janel Morris MANUAL DIFF REQ NO Normal [facility] Comment on above: Performed By: #### C BC ####[facility] [address] [place] [id number]. Janel Morris MCH (RBC) [Entitic mass] 32.4 pg Normal 26.7-34.0 [facility] Comment on above: Performed By: #### C BC ####[facility] [address] [place] [address]Dr. Janel Morris MCHC (RBC) [Mass/Vol] 33.8 g/dL Normal 29.9-35.2 [facility] Comment on above: Performed By: #### C BC ####[facility] [address] [place] [address]Dr. Janel Arturo MCV (RBC) [Entitic vol] 95.9 fL Normal 81.0-99.0 [facility] Comment on above: Performed By: #### C BC ####[facility] [address] [place] [address]Dr. Janel Arturo MONO # 0.5 103/ul Normal 0.3-0.8 [facility] Comment on above: Performed By: #### C BC ####[facility] [address] [place], [place] [address]Dr. Jessyarmando Morris Monocytes/100 WBC (Bld) 10.0 % Normal 1.7-12.0 [facility] Comment on above: Performed By: #### C BC ####[facility] [address] [place], [place] [address]Dr. Janel Morirs NEUT # 2.0 103/ul Normal 1.4-6.5 [facility] Comment on above: Performed By: #### C BC ####[facility] [address] [place], [place] [address]Dr. Janel Morris Neutrophils/100 WBC (Bld) 37.9 % Critically low 43.0-75.0 [facility] Comment on above: Performed By: #### C BC ####[facility] [address] [place], [place] [address]Ls. Janel Morris Platelet mean volume (Bld) [Entitic vol] 8.9 fL Critically low 9.5-13.5 [facility] Comment on above: Performed By: #### C BC ####[facility] [address] [place], [place] [address]Qg. Janel Morris PLT 279 103/ul Normal 150-450 [facility] Comment on above: Performed By: #### C BC ####[facility] [address] [place], [place] [address]He. Janel Morris RBC 4.17 106/ul Critically low 4.20-5.40 [facility] Comment on above: Performed By: #### C BC ####[facility] [address] [place] [phone]. Janel Morris WBC 5.3 103/ul Normal 4.0-11.0 [facility] Comment on above: Performed By: #### C BC ####[facility] [address] [place] [id number]. Janel Morris CRPon 02-03-2022 CRP [Mass/Vol] mg/L Normal <=1.0 [facility] Comment on above: Performed By: #### H STROPN, CMP, CRP ####[facility] [address] [place] [phone]. Janel Morris Covid-19 PCR (CVDTB)on 01-11 SARS-CoV-2 (COVID-19) RNA PADMINI+probe Ql (Unsp spec) Not detected Normal NOT DETECTED [facility] Comment on above: Result Comment: When [...] for this test is supported by the [employer] of Health and Human Service's declaration that [...] be used). Performed By: #### C VDTBH ####[facility] [address] [place] [address]DrPauly Morris D-DIMERon 02-03-2022 D-DIMER 0.30 mg/L FEU Normal <=0.59 [facility] Comment on above: Performed By: #### D DIM ####[facility] [address] [place] [address]DrPauly Morris D-DIMER COMMENTS SEE BELOW Normal [facility] Comment on above: Result Comment: Incr [...] generalized hospitalization. Performed By: #### D DIM ####[facility] [address] [place] [address]DrPauly Morris PROF 14(COMP METB)on 022 Albumin [Mass/Vol] 3.9 g/dL Normal 3.4-5.0 [facility] Comment on above: Performed By: #### H STROPN, CMP, CRP ####[facility] [address] [place] [address]DrPauly Morris Albumin/Globulin [Mass ratio] 1.2 {ratio} Normal [facility] Comment on above: Performed By: #### H STROPN, CMP, CRP ####[facility] [address] [place] [address]DrPauly Morris ALP [Catalytic activity/Vol] 74 U/L Normal 46-116 [facility] Comment on above: Performed By: #### H STROPN, CMP, CRP ####[facility] [address] [place] [address]Dr. Janel Morris ALT [Catalytic activity/Vol] 15 U/L Normal 14-59 [facility] Comment on above: Performed By: #### H STROPN, CMP, CRP ####[facility] [address] [place] [address]Dr. Janel Morris Anion gap [Moles/Vol] 12.7 mmol/L Normal [facility] Comment on above: Performed By: #### H STROPN, CMP, CRP ####[facility] [address] [place], [place] [address]Dr. Jaenl Morris AST [Catalytic activity/Vol] 15 U/L Normal 15-37 [facility] Comment on above: Performed By: #### H STROPN, CMP, CRP ####[facility] [address] [place], [place] [address]Dr. Janel Morris Bilirubin [Mass/Vol] 0.4 mg/dL Normal 0.2-1.0 [facility] Comment on above: Performed By: #### H STROPN, CMP, CRP ####[facility] [address] [place] [address]Dr. Janel Morris Calcium [Mass/Vol] 9.4 mg/dL Normal 8.5-10.1 [facility] Comment on above: Performed By: #### H STROPN, CMP, CRP ####[facility] [address] [place] [address]Dr. Janel Morris Chloride [Moles/Vol] 105 mmol/L Normal 98-107 [facility] Comment on above: Performed By: #### H STROPN, CMP, CRP ####[facility] [address] [place] [address]Dr. Janel Morris CO2 [Moles/Vol] 26.1 mmol/L Normal 21.0-32.0 [facility] Comment on above: Performed By: #### H STROPN, CMP, CRP ####[facility] [address] [place] [id number]. Janel Morris Creatinine [Mass/Vol] 1.02 mg/dL Normal 0.55-1.02 [facility] Comment on above: Performed By: #### H STROPN, CMP, CRP ####[facility] [address] [place] [id number]. Janel Arturo EGFR-AF FRENCH >60 Normal >=60 [facility] Comment on above: Performed By: #### H STROPN, CMP, CRP ####[facility] [address] [place] [id number]. Jessyarmando Arturo EGFR-NON AF FRENCH 54 mL/min/1.73m2 Critically low >=60 [facility] Comment on above: Performed By: #### H STROPN, CMP, CRP ####[facility] [address] [place] [address]Dr. Janel Morris Globulin (S) [Mass/Vol] 3.3 g/dL Normal [facility] Comment on above: Performed By: #### H STROPN, CMP, CRP ####[facility] [address] [place] [address]Dr. Janel Morris Glucose [Mass/Vol] 94 mg/dL Normal 74-106 [facility] Comment on above: Performed By: #### H STROPN, CMP, CRP ####[facility] [address] [place] [phone]. Janel Morris Potassium [Moles/Vol] 3.8 mmol/L Normal 3.5-5.1 [facility] Comment on above: Performed By: #### H STROPN, CMP, CRP ####[facility] [address] [place] [address]Dr. Janel Morris Protein [Mass/Vol] 7.2 g/dL Normal 6.4-8.2 [facility] Comment on above: Performed By: #### H STROPN, CMP, CRP ####[facility] [address] [place] [address]Dr. Jessyarmando Morris Sodium [Moles/Vol] 140 mmol/L Normal 136-145 [facility] Comment on above: Performed By: #### H STROPN, CMP, CRP ####[facility] [address] [place] [address]Dr. Janel Morris Urea nitrogen [Mass/Vol] 20.0 mg/dL Critically high 7.0-18.0 [facility] Comment on above: Performed By: #### H STROPN, CMP, CRP ####[facility] [address] [place] [address]Dr. Janel Morris Urea nitrogen/Creatinine [Mass ratio] 19.6 mg/mg Normal [facility] Comment on above: Performed By: #### H STROPN, CMP, CRP ####[facility] [address] [place] [address]Dr. Janel Morris SED RATE [facility] 2021 SED RATE 12 mm/hr Normal <=30 [facility] Comment on above: Result Comment: Prev iously reported as: 20 On 02/03/2022 20:45 By KD3 Performed By: #### S EDR #### [facility] [address] [place] [address] [address] Janel Morris TROPONIN, HIGH SENSITIVITYon 02-03-2022 HSTROP 4.4 pg/mL Normal 4.0-51.3 [facility] Comment on above: Result Comment: CUT- OFF POINTS HAVE BEEN ESTABLISHED BASED ON THE FOURTH UNIVERSAL DEFINITIONS OF MYOCARDIAL INFARCTION. THE UPPER REFERENCE LIMIT (URL) OF TROPONIN, DEFINED THE 99TH PERCENTILE OF cTnI DISTRIBUTION IN A REFERENCE POPULATION, HAS BEEN CONFIRMED THE DECISION THRESHOLD FOR PR DIAGNOSIS. Performed By: #### H STROPN ####[facility] [address] [place] [address]Dr. Janel Morris HSTROP 4.4 pg/mL Normal 4.0-51.3 [facility] Comment on above: Result Comment: CUT- OFF POINTS HAVE BEEN ESTABLISHED BASED ON THE FOURTH UNIVERSAL DEFINITIONS OF MYOCARDIAL INFARCTION. THE UPPER REFERENCE LIMIT (URL) OF TROPONIN, DEFINED THE 99TH PERCENTILE OF cTnI DISTRIBUTION IN A REFERENCE POPULATION, HAS BEEN CONFIRMED THE DECISION THRESHOLD FOR PR DIAGNOSIS. Performed By: #### H STROPN, CMP, CRP ####[facility] [address] [place], [place] [address]NpDr. Janel Morris XR CHEST 1 Von 02-03-2022 [...] APOLLO HUBER Date: 2022-02-03 21:05 Normal [facility] Covid-19 PCR (CVDTBH)on 05-12 SARS-CoV-2 (COVID-19) RNA PADMINI+probe Ql (Unsp spec) Not detected Normal NOT DETECTED [facility] Comment on above: Result Comment: This test is not yet approved or cleared by the [place] FDA. When there are no FDA-approved or cleared tests available, and other criteria are met, FDA can make tests available under an emergency access mechanism called an Emergency Use Authorization (EUA). The EUA for this test is supported by the [employer] Operator of Health and Human Service's (HHS's) declaration [...] consistent with SARS-CoV-2. Performed By: #### C VDTB #### [facility] [address] [place], [place] [address] Dr. Janel Morris Vital Signs Date Time Vital Sign Value Performing Clinician Facility 09-11-2023 08:31-0400 Body height 165.1 cm [facility] 09-11-2023 08:31-0400 Body mass index (BMI) [Ratio] 25.7 kg/m2 [facility] 09-11-2023 08:31-0400 Body weight 70.3 kg [facility] 09-11-2023 08:31-0400 Diastolic blood pressure 76 mm[Hg] [facility] 09-11-2023 08:31-0400 Heart rate 79 /min [facility] 09-11-2023 08:31-0400 Systolic blood pressure 121 mm[Hg] [facility] 08-21-2023 08:44-0400 Body height 165.1 cm [facility] 08-21-2023 08:44-0400 Body mass index (BMI) [Ratio] 2.5 kg/m2 [facility] 08-21-2023 08:44-0400 Body temperature 97.8 [degF] [facility] 08-21-2023 08:44-0400 Body weight 6.86 kg [facility] 08-21-2023 08:44-0400 Diastolic blood pressure 79 mm[Hg] [facility] 08-21-2023 08:44-0400 Heart rate 84 /min [facility] 08-21-2023 08:44-0400 Systolic blood pressure 144 mm[Hg] [facility] 02-23-2023 09:15-0400 Body height 165.1 cm Amina Tyler Other [employer] [facility] [employer] Other 02-23-2023 09:15-0400 Body mass index (BMI) [Ratio] 25.96 kg/m2 Amina Tyler Other [employer] [facility] [employer] Other 02-23-2023 09:15-0400 Body weight 70.76 kg Amina Tyler Other [employer] Other 02-23-2023 09:15-0400 Diastolic blood pressure 80 mm[Hg] Amina Tyler Other [employer] [facility] [employer] Other 02-23-2023 09:15-0400 SaO2% (BldA) [Mass fraction] 99 % Amina Tyler Other [employer] Other 02-23-2023 09:15-0400 Systolic blood pressure 128 mm[Hg] Amina Tyler Other [employer] Other Encounters Encounter Date Encounter Type Care Provider Facility Start: 12-06-2023 End: 12-06-2023 ambulatory ZAHIDA MALHOTRA Not Available Start: 11-29-2023 End: 11-29-2023 ambulatory JACKSON BA Not Available Start: 09-11-2023 End: 09-11-2023 ambulatory [facility] Work Phone: Start: 09-11-2023 End: 09-11-2023 Patient encounter procedure [facility] Physician [facility] Work Phone: Start: 08-21-2023 End: 08-21-2023 Patient encounter procedure [facility] Physician [facility] Work Phone: Start: 08-17-2023 End: 08-18-2023 ambulatory Padma Joyner Facility:[facility] [facility] Start: 08-17-2023 End: 08-17-2023 Patient encounter procedure Padma Joyner [facility] Start: 08-17-2023 Non-patient / Non-visit [facility] Work Phone: Start: 02-23-2023 End: 02-23-2023 ambulatory Amina Tyler Other [employer] Other Start: 02-23-2023 Office outpatient vi sit 15 minutes Amina Tyler [facility] Start: 05-09-2022 End: 05-10-[address] AMINA TYLER Facility:[facility] Start: 02-11-2022 End: 02-12-[address] AMINA TYLER Facility:[facility] Start: 02-03-2022 End: 02-04-[address] RAMIREZ LOVING Facility:[facility] Start: 05-26-2021 End: 05-26-[address] AMINA TYLER Facility: Plan of Treatment Date Care Activity Detail Author Start: 09-11-2023 Patient referral [facility] Work Phone: Patient referral [facility] Work Phone: Immunizations Immunization Date Immunization Notes Care Provider Fa cility 03-16-2020 pneumococcal conjuga te vaccine, 13 valent Amina Tyler Other [facility] Payers Date Payer Category Payer Private Health Insurance CLI [id number] 1957 Medicare [id number] 1959 Private Health Insurance [id number] 1950 Unknown [id number] 1950 Unknown [id number] 1950 Unknown [id number] 1950 Unknown [id number] 1950 Unknown [id number] 1950 Unknown [id number] 1950 Unknown [id number] 1950 Unknown [id number] Unknown Bisi BC/BS [id number] Social History Date Type Detail Facility Sex Assigned At [facility] Tobacco smoking status No Smokin g Status Entered [facility] Start: 02-23-2023 Tobacco smoking stat us NHIS Ex-smoker (finding) [facility] Start: 1950 Sex Assigned At Female F [facility] Evaluation note 02-23-2023 Note Date & Type [...] vertigo. Gave order for PT as well. [employer] Other Chief complaint+Reason for visit Narrative Note Date & Type Note Facility Chief complaint+Reason for visit Narrative Reason for Visit Acute effusion of both middle ears Decreased hearing of left ear Tinnitus of left ear Vertigo [facility] Work Phone: Evaluation + Plan note Note Date & Type Note Facility Evaluation + Plan note No data available for this section [facility] Evaluation note Note Date & Type Note Facility Evaluation note Diagnosis Onset Date Acute effusion of both middle ears acute Decreased hearing of left ear acute Tinnitus of left ear acute Vertigo acute [facility] Work Phone: History general Narrative - Reported Note Date & Type Note Facility History general Narrative - Reported Type Medical History Syncope and collapse Medical History Pain in right shoulder Medical History Situational anxiety Surgical History B cataracts 2019 Surgical History Carpal tunnel release- right foreman nd 2003 Surgical History Colonoscopy 2013 Hospitalization History see surgical hx [employer] Other Hospital Discharge instructions Note Date & Type Note Facility Hospital Discharge instructions No data available for this section [facility] Discharge instructions Note Date & Type Note Facility Hospital Discharge instructions Ambulatory OrdersReferral to ENT Time Frame: 09/11/23, Location: None Selected [facility] Work Phone: Progress note Note Date & Type Note Facility Progress note No data available for this section [facility] Summary Purpose Family History No Family History Records Found Relationship Condition Age at Onset Recorded Date/T shana father Aneurysm Unknown Unknown Not Specified Unknown Family history of pancreatic cancer Unkno wn Advance Directives No Advanced Directives Records Found Advance Directive Response Recorded Date/ Time Advance Directives No August 20 024 8:34am Additional Source Comments INFORMATION SOURCE (unrecogn ized section and content) DATE CREATED AUTHOR 05/14/2022 [facility] DATE CREATED AUTHOR AUTHOR'S ORGANIZ ATION 08/19/2023 Uribe [facility] DATE CREATED AUTHOR AUTHOR'S ORGANIZ ATION 12/07/2023 [facility] EPIC REASON FOR VISIT (unrecogniz ed section and content) DIZZY SPELLS Patient Care team informatio n (unrecognized section and content) Team Status: Active Member Role Status Dates Amina Tyler MD Primary Care Provider Active Team Status: Active Member Role Status Dates Aimna Tyler MD Primary Care Provide r, Attending [...] BE BASED ON THE PRIMARY CLINICAL RECORDS. [employer] provides no warranty or guarantee of the accuracy or completeness of information in this document.
== END 2023-12-15 06:34 | disposition home or self-care (01) ==
LOC: MRI 06:33
PROVIDERS: PCP Family Medicine; Visit Provider Otolaryngology
DX: H90.3 Sensorineural hearing loss, bilateral (principal); H93.12 Tinnitus, left ear
CPT/HCPCS: 70553; A9575

== ENCOUNTER 2025-04-07 09:45 | Outpatient (OUT) | payer MEDICARE, SELFPAY ==
--- OUTSIDE RECORDS SUMMARY | 2025-04-03 05:10 | XMS_ITS | Continuity of Care Document ---
Author Organization [facility] Address [address] [place] [address] Phone Care Team Providers Care Marzipan Maker Name Role Phone Amina Jolly MD Primary Care Provider Amina Jolly MD Attending Provider Care Teams Patient Care Team Team Status: Active Member Role/Relationship Status Dates Amina Jolly MD Primary Care Provider Active Patient Care Team Team Status: Inactive Member Role/Relationship Status Dates Amina Jolly MD Primary Care Provider Active Start: April 03, 2025 End: April 03, 2025Amina Jolly MDAttending ProviderActiveStart: April 03, 2025 End: April 03, 2025 Chief Complaint and Reason for Visit Chief Complaint Admit Date Wellness April 03, 2025 8 :17am Reason for Visit Admit Date Colon cancer screening April 03 8:17am Screening mammogram for breast cancer Oc tober 2024 8:17am Allergies, Adverse Reactions, Alerts Allergen Type Severity Reaction Last Updated Verified Status No Known Allergies Allergy Unknown April 03, 2025 8:29amYesActive Social History Smoking Status Status Start Date End Date Date of Observa tion Ex-smoker (finding) April 03, 2025 8:31am Observation Status Observation Response Date of Response Legal Sex Female (finding) Sex Assigned At BirthFemaleDecember 1949 Family History Relationship Condition Age at Onset Recorded Date/T shana father Aneurysm Unknown DeceasedUnknownmotherDeceasedUnknownFamily history of pancreatic cancerUnknown Problems Active Problems Problem Diagnosis/Recorded Date Onset Date Stat Colon cancer screening April 03, 2025 8:57am Unkno wn Active Screening mammogram for breast cancer April 03 8:54am Unknown Active Sinusitis, acute maxillary November 14, 2024 12:06pm Unkn own Active Inactive/Resolved Problems Problem Diagnosis/Recorded Date Onset Date Stat us Tinnitus of left ear September 11, 2023 8:54am Unknown Resolved Anxiety September 13, 2023 9:33am Unknown Resol ghulam Decreased hearing of left ear September 11, 2023 8:54am U nknown Resolved Acute effusion of both middle ears August 24, 2023 10 :16pm Unknown Resolved Vertigo September 11, 2023 8:53am Unknown Resol hgulam Medications Medication Status Dose Units Route Directions Qty Days Refills S tart Date Stop Date End Date Reason(s) Instructions Adherence Azithromycin 250 mg tablet Discontinued 0 PO.CDSEJWT69Epob 2024 12:00amOctober 2024 8:29amFor 250 mg dose pack: take 500 mg today (day 1), then 250 mg for 4 days (days 2-5) POMeclizine 25 mg jvhefiVpicmfhcrbcv75MLLBNgemh as [facility] 2023 12:00amJune 2024 12:02pm Immunizations Immunization Event Date Not Given Reason Dose Number 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 Lot Number Reason(s) Given Vaccine Information Statement (VIS) Detail Administration Location Pneumococcal Conjugate Vaccine, 13 valent Octobe r 2019 Vital Signs Vital Reading Result Reference Range Collection Date/Time Height 64 [in_i] April 03, 2025 8:91whOrtwkp41.58 [facility] 2024 8:28amHeart Rate71 /jyc44-121Djirnrg 2024 8:28amBP Aspftvgo651 mm[Hg]100-140Octk[facility] 2024 8:28amBP Eoydgdpex36 mm[Hg]60-100Octk[facility]ucky river [facility] 2024 8:28amBMI (Body Mass Index)25.5 kg/s7Xmnxjeb 2024 8:28am Advance Directives Advance Directive Response Recorded Date/ Time Advance Directives No August 20 8:34am Insurance Providers Guarantor Nette Mccabe Anderson Address [address] [place] [address]Sovxkyd Info.Home Phone: Payer Group Member ID Coverage Type Subscriber Relationship to Subscriber Effective Date Expiration Date Bisi [employer] [id number] Puentes Id: [id number] [address] [place] [address] Home Phone: SelfMedicare [id number] Puentes Id: [id number] [address] [place] [address] Home Phone: [employer] [facility] [address] [place] [address] Work Phone: [phone] A Puentes Id: [id number] [address] [place] [address] Home Phone: Self Encounters Encounter Location(s) Arrival/Admit Date Discharge/Departure Date Discharge/Departure Disposition Provider(s) Departed Physician/ Provider Office Visit -[facility] April 03, 2025 8:17am April 03, 2025 9:09am Discharged to home care or self care (routine discharge) Amina Jolly MD Recent Diagnosis Onset Date Admit Date Colon cancer screening Unknown March 132024 8:17am Screening mammogram for breast cancer Unknown April 03, 2025 8:17am Assessments Diagnosis Onset Date Resolution Status Admit Date Colon cancer screening acuteOctober 2024 8:17amScreening mammogram for breast canceracuteOctober 2024 8:17am Plan of Treatment Future Tests Future scheduled test information is unavailable Pending Tests Test Name Ordered Date Scheduled Date MM screening mammo BI w/CAD April 03, 2025 8 :54am Future Visits Future appointment information is unavailable Future Procedures Procedure Name Ordered Date Scheduled Date AMB Cologuard April 03, 2025 8:56am Future Medications Future medication information is unavailable Patient Instructions Patient instructions are unavailable
--- OUTSIDE RECORDS SUMMARY | 2025-04-07 09:48 | XMS_ITS | Clinical Summary ---
Author Organization [facility] Address [address] [facility] [email or web address] [address] Care Team Providers Care Drawing Box Tender Name Role Phone Amina Jolly MD Primary Care Provider [phone] Allergies No known active allergies Medications MedicationSigDispense QuantityRefillsLast FilledStart DateEnd DateStatus ibuprofen 200 MG tablet Take 200 mg by mouth every 6 (six) hoursActive meclizine (Antivert) 25 MG tablet Take 25 mg by mouth 3 (three) times a day as iasavi6408/21/2023ctive meloxicam (Mobic) 15 MG tablet Take 15 mg by mouth 1 (one) time each day at the same timeActive Active Problems ProblemNoted DateDiagnosed DateActive Meniere's disease of left ear01/09/2024 Acute effusion of both middle ears11/30/2023rthritis of right acromioclavicular joint11/30/2023ecreased hearing of left ear11/30/2023rimary osteoarthritis of right knee11/30/2023Tinnitus of left ear11/30/20235181Qtkwlep43/20/2024Anxiety 11/30/2023 Family History Medical HistoryRelationNameCommentsNo Known ProblemsBrotherRelationNameStatus CommentsBrotherAliveFatherDeceasedMotherDeceased Social History Tobacco UseTypesPacks/DayYears UsedDateSmoking Tobacco: FormerCigarettes Smokeless Tobacco: Never Tobacco Cessation:Counseling Given: Not Answered Alcohol UseStandard Drinks/WeekCommentsYes0 (1 standard drink = 0.6 oz pure alcohol)sociallyCommentsUnknownSex and Gender InformationValueDate RecordedSex Assigned at BirthNot on fileLegal VbeUbyruv93/15/2023 7:24 PM EDT Gender IdentityNot on fileSexual OrientationNot on file Last Filed Vital Signs Vital SignReadingTime TakenCommentsBlood Lmrlcdpp495/76001/09/2024 8:07 AM EDT Pulse--Temperature--Respiratory Rate--Oxygen Saturation--Inhaled Oxygen Concentration--Gusokv97.4 kg (153 lb)12/06/2023 1:31 PM IKXSwwxfq707.2 cm (5' 4.25 )01/09/2024 8:07 AM EDTBody Mass Index26.0612/06/2023 1:31 PM EDT Plan of Treatment [place] [address] Care Teams Team MemberRelationshipSpecialtyStart DateEnd Date Amina Jolly MD PCP - GeneralFamily Medicine09/15/23
--- NOTE | 2025-04-07 09:50 | MM_ITS ---
Patient Name: JANEEN PUENTES MR#: [id number] : 1950 Exam Date: 04/07/2025 Ordering Doctor: DR AURA TYLER M.D. RADIOLOGY REPORT PROCEDURE: MM TOMOSYNTHESIS SCREENING BI COMPARISON: MG MAMM SCREEN 3D [place]HELL CAD, 05/09/2022. MG MAMM SCREEN 3D [place] CAD, 05/07/2021. MG MAMM SCREEN [place]LL W CAD, 05/05/2020. MG MAMM L[place]HELL SCRN W CAD DIG, 03/07/2013. INDICATIONS: screening for malignant neoplasm Calculator Name NCI Breast Cancer Risk Assessment Tool 5 Year Breast Cancer Risk 1.60% Lifetime Breast Cancer Risk 4.10% Personal Breast Cancer No Personal Ovarian Cancer No Treatments None Family Cancers Mother with pancreatic cancer at age 74. LOCATION: [facility] BREAST COMPOSITION: There are scattered areas of fibroglandular density. FINDINGS: RIGHT BREAST: No significant suspicious finding. LEFT BREAST: No significant suspicious finding. DIAGNOSTIC CATEGORY 1--NEGATIVE. RECOMMENDATIONS: ROUTINE MAMMOGRAM AND CLINICAL EVALUATION IN 12 MONTHS. Dictated by: Abdullahi Puentes DO on 04/07/2025 at 12:13 Approved by: Abdullahi Puentes DO on 04/07/2025 at 12:17
--- OUTSIDE RECORDS SUMMARY | 2025-04-07 10:15 | XMS_ITS | CCD ---
Author Organization [facility] Care Team Providers Care Buyers' Agent Name Role Phone JAYSON, DR AMINA Garduno Primary Care Unavailable TYLER, DR AMINA Garduno Admitting Unavailable TYLER, DR AMINA Garduno Attending Unavailable ZIEBER, DR FRANDY Infante Consulting Unavailable TYLER, DR AMINA Garduno Consulting Unavailable TYLER, DR AMINA Garduno Admitting Unavailable TYLER, DR AMINA Garduno Attending Unavailable TYLER, DR AMINA Garduno Consulting Unavailable YTLER, DR AMINA Garduno Primary Care Unavailable TYLER, DR AMINA Garduno Admitting Unavailable TYLER, DR AMINA Garduno Attending Unavailable TYLER, DR AMINA Garduno Consulting Unavailable TYLER, DR AMINA Garduno Primary Care Unavailable MARKER, DR GUZMÁN Admitting Unavailable MARKER, DR GUZMÁN Attending Unavailable MARKER, DR GUZMÁN Consulting Unavailable TYLER, DR AMINA Garduno Primary Care Unavailable KLIPPERAPOLLO Consulting Unavailable Jayson, Amina Unavailable AMINA TYLER Primary Care Physician [phone] Padma Joyner Attending Unavailable Ar, Padma Admitting Unavailable Ar, Padma Admitting Unavailable Padma Joyner Attending Unavailable JACKSON BA Attending Unavailable AMINA TYLER Referring Unavailable ZAHIDA MALHOTRA Attending Unavailable JAYSON, AMINA Referring Unavailable ZAHIDA MALHOTRA Attending Unavailable Amina Tyler MD Primary Care Provider [phone] Amina Tyler MD Attending Provider [phone] Medications Current Medications MedicationDrug Class(es)DatesSig (Normalized)Sig (Original)meloxicam 15 mg oral tablet (1 source)Nonsteroidal Anti-inflammatory DrugStart: 90-17-8523dxrm 1 tablet by mouth once dailyMeloxicam 15 MG Meloxicam 15MG, 1 (one) Tablet daily # 30, 05/04/2021, Ref. x1. Active Oral daily for 0 Apr, Activevitamin B12 (1 source)Vitamin K20Gtoyn: 43-29-1312Unvenyu B-12 Vitamin B-12 , , 05/08/2018, No Refill. Active for 0 VITAMIN B-12 500 MCG ORAL TABLET,*Pick strength-form from [place] for eRX* Apr, Active Completed/Discontinued Medications MedicationDrug Class(es)DatesSig (Normalized)Sig (Original)azithromycin 250 mg oral tablet (2 sources)Macrolide AntimicrobialStart: 11-14-2024 End: 15-89-1201Rbcnnzsphscq 250 mg tablet Discontinued 0 PO .COMPLEX 6 0 November 14, 2024 12:00am April 0358:29am For 250 mg dose pack: take 500 mg today (day 1), then 250 mg for 4 days (days 2-5) POmeclizine hydrochloride 25 mg oral tablet (4 sources)AntiemeticStart: 08-21-2023 End: 64-00-3507nlyt 1 tablet by mouth once daily as neededMeclizine 25 mg tablet Discontinued 25 MG PO Daily as needed August 21, 2023 12:00am November 14, 2024 12:02pmtake 1 tablet by mouth every twelve hoursMeclizine HCl 25 MG 1 tablet as needed Orally every 12 hrs for 15 days Active Problems Active Problems Problem ClassificationProblemDateDocumented DateEpisodic/ChronicAnxiety disorders (5 sources)Other specified anxiety disorders; Translations: [Panic disorder [episodic paroxysmal anxiety]]Onset: [id number] associated with dizziness or vertigo (9 sources)Dizziness and giddiness; Translations: [Benign paroxysmal vertigo, unspecified ear]Onset: 81-25-0941WskadlvtJflqf ear and sense organ disorders (3 sources)Hearing loss of left ear; Translations: [Unspecified hearing loss, left ear]90-38-6908QyfivheTqitj ear and sense organ disorders (1 source)Unspecified hearing loss, left ear; Translations: [Unspecified hearing loss]18-97-9266BmnirhqGlqiq ear and sense organ disorders (2 sources)Tinnitus; Translations: [Tinnitus, left ear]20-41-3238LjvfukejOwblc ear and sense organ disorders (1 source)Tinnitus, left ear; Translations: [Tinnitus, unspecified]09-11-2023 EpisodicOther ear and sense organ disorders (1 source)Tinnitus of left ear; Translations: [Tinnitus, left ear]11-14-2024 EpisodicOther non-traumatic joint disorders (1 source)Shoulder joint pain; Translations: [Pain in right shoulder]Episodic Other screening for suspected conditions (not mental disorders or infectious disease) (8 sources)Encounter for screening mammogram for malignant neoplasm of breast; Translations: [Patient encounter status]Onset: 95-39-5497VamnkksrKoswx upper respiratory infections (1 source)Acute maxillary sinusitis; Translations: [Acute maxillary sinusitis, unspecified]03-95-8020DdtzdqumRybrxa media and related conditions (4 sources)Acute transudative otitis media; Translations: [Other acute nonsuppurative otitis media, bilateral]25-29-3753ZqrgbukvVszokyck codes; unclassified (1 source)Family history of malignant neoplasm of other organs or systems; Translations: [FAM HX MALIG NEOPLASM OTH ORGN/SYS]Onset: 24-60-2657Ioumxoer Syncope (5 sources)Syncope and collapse; Translations: [Syncope and collapse]Onset: 69-11-2647BuisntdiHzffztzvejtz (4 sources)CONTACT W/AND (SUSP) EXPOS COVID-19; Translations: [CONTACT W/AND (SUSP) EXPOS COVID-19]Onset: 05-29-2021 Past or Other Problems Problem ClassificationProblemDateDocumented DateEpisodic/ChronicOther lower respiratory disease (1 source)Dyspnea, unspecified; Translations: [DYSPNEA UNSPECIFIED]Onset: 05-21-2506ObmymcxcNxwhcjrjuoha (1 source)CONTACT W/AND (SUSP) EXPOS COVID-19; Translations: [CONTACT W/AND (SUSP) EXPOS COVID-19]Onset: 05-26-2021 Results Test NameValueInterpretationReference RangeFacilityCT Head or Brain w/o Contrast on 47-96-0016TF Head or Brain w/o ContrastExam Date/Time: 08/17/2023 21:18 EST Reason for Exam: [...] for age. Paranasal sinuses and skull base: Thickening/opacification of the left sphenoid sinus. Mastoid air cells clear. The skull base is unremarkable. Soft tissues unremarkable. Report Ordering Provider: Padma Joyner FINAL REPORT Dictated: 08/18/2023 9:03 am Lorenzo Viramontes MD Signed (Electronic Signature): 08/18/2023 9:03 am Signed by: Lorenzo Viramontes MD Transcribed by: JORDYN Technologist: [facility] HospitalAutomated epithelial cells count in urine sediment (number/area)on 38-12-0400Auhnevkdyx cells Auto (Urine sed) [#/Area]RARE #/LPFNONE/RAREBellevue HospitalAutomated leukocytes count in urine sediment (number/area)on 98-95-6573GMJ Auto (Urine sed) [#/Area]0-2 #/HPF0-2FNorwalk Memorial HospitalAutomated urine specific gravity by refractometryon 68-43-0683Spwqcgoe gravity Refractometry automated (U) [Rel density]1.0151.005-1.025Bellevue HospitalBasophils Auto (Bld) [#/Vol]on 49-92-9444Owzscsjyw (Bld) [#/Vol] 0.1 10 3/uL0.0-0.1FNorwalk Memorial HospitalBasophils/100 WBC Auto (Bld) on 68-53-0099Assvvaueo/100 WBC (Bld)1.4 %0.2-2.0B[facility] HospitalBilirubin Auto test strip (U) [Mass/Vol]on 97-00-6834Uipdspntd (U) [Mass/Vol]NegativeNEGATIVEBellevue HospitalCast typing in urine sediment by light microscopyon 19-41-8609Mcljr LM Nom (Urine sed)NONE SEEN #/LPFNONE SEENBellevue HospitalColor Auto (U)on 74-27-4019Jdmjw (U)LT. YELLOWYELLOWBellevue HospitalConsent for Treatmenton 19-39-2032Kdxplqi for Treatment [id number]#1.00TIFFNormalFisher Medstar Harbor HospitalEosinophils/100 WBC Auto (Bld)on 08-96-7805Gjmwwncgpor/100 WBC (Bld)1.5 % 0.9-7.0B[facility] HospitalErythrocyte distribution width Auto (RBC) [Ratio]on 81-48-6389Ykarirtdnlu distribution width (RBC) [Ratio]11.9 % 11.0-15.0B[facility] HospitalEstimated glomerular filtration rate (GFR) non- Americanon 36-06-4812PRY/1.73 sq M.predicted among non-blacks MDRD (S/P/Bld) [Vol rate/Area]mL/min/{1.73_m2}>=60Bellevue HospitalGlobulin Calc (S) [Mass/Vol]on 27-30-6092Vdoiluic (S) [Mass/Vol]3.8 g/dL [facility] HospitalHematocrit Auto (Bld) [Volume fraction]on 43-99-7435Axiufhtsen (Bld) [Volume fraction]42.4 %36.0-48.0B[facility]vue HospitalHemoglobin [Mass/volume] in Bloodon 95-33-7351Vckytabmpz (Bld) [Mass/Vol]14.1 g/dL12.0-16.0B[facility] HospitalINR in Platelet poor plasma by Coagulation assayon 66-86-5722BWP Coag (PPP) [Relative time]{INR} [facility] HospitalComment on above:DESIRED INR:2.0-3.0 CONDITIONS NOT LISTED BELOW2.5-3.5 FOR PROSTHETIC HEART VALVE REPLACEMENT2.5-3.5 RECURRENT THROMBOSISKetones Auto test strip (U) [Mass/Vol]on 18-07-2978Yvbgakd (U) [Mass/Vol]NegativeNEGATIVEBellevue HospitalLaboratory - Chemistry and Chemistry - challengeon 26-96-3594Ducqylt [Mass/Vol]3.6 g/dL 3.4-5.0B[facility] HospitalALP [Catalytic activity/Vol]82 U/L46-116 [facility] HospitalALT [Catalytic activity/Vol]18 U/L14-59 [facility] HospitalAST [Catalytic activity/Vol]21 U/L15-37 [facility] HospitalBilirubin [Mass/Vol]0.4 mg/dL0.2-1.0[facility] HospitalCalcium [Mass/Vol]9.3 mg/dL8.5-10.1FNorwalk Memorial HospitalChloride [Moles/Vol]102 mmol/B25-936DjaomtsxhBellevue HospitalCO2 [Moles/Vol]23.6 mmol/L21.0-32.0[facility] Creatinine [Mass/Vol]0.78 mg/dL0.55-1.02[facility] GFR/1.73 sq M.predicted MDRD (S/P/Bld) [Vol rate/Area]mL/min/{1.73_m2}>=60 [facility] HospitalGlucose [Mass/Vol]127 mg/vN42-005TofpaxkizBellevue HospitalPotassium [Moles/Vol]3.3 mmol/L3.5-5.1FNorwalk Memorial HospitalProtein [Mass/Vol]7.4 g/dL6.4-8.2FNorwalk Memorial Hospital Sodium [Moles/Vol]140 mmol/C388-267EcrdfzhldBellevue HospitalTSH Qn2.187 m[IU]/L0.358-3.740B[facility]vue HospitalUrea nitrogen [Mass/Vol]19.0 mg/dL7.0-18.0B[facility] HospitalUrea nitrogen/Creatinine [Mass ratio]24.4 mg/mgBellevue HospitalLaboratory - Hematology and Cell countson 16-18-9628Vmzaziud granulocytes/100 WBC (Bld)1.2 %0.0-0.5FNorwalk Memorial HospitalLaboratory - Microbiology and Antimicrobial susceptibilityon 08-39-1315DBHV-CoV-2 (COVID-19) RNA PADMINI+probe Ql (Unsp spec) NegativeNEGATIVEBellevue HospitalComment on above:This test has not been FDA cleared or approved, but has beenauthorized by the FDA under an Emergency Use Authorization(EUA) for use by authorized laboratories certified underIA that meet the requirements to perform moderate or highcomplexity testing. This test has been authorized only forthe detection of proteins from SARS-CoV-2, not for any otherviruses or pathogens. The emergency use of this t est isauthorized for the duration of the declaration thatcircumstances exist justifying the authorization ofemergency use of in vitro diagnostic tests for detectionand/or diagnosis of Covid-19 under section 564(b)(1) of theAct, 21 U.S.C. 360bbb-3(b)(1), unless the declaration isterminated or authorization is revoked sooner.Leukocytes [#/volume] corrected for nucleated erythrocytes in Blood by Automated counon 47-21-6194BKH corrected for nucl RBC Auto (Bld) [#/Vol]6.7 10 3/uL4.0-11.0B[facility]vue HospitalLymphocytes Auto (Bld) [#/Vol]on 66-10-5628Uwjipzebrwo (Bld) [#/Vol]3.2 10 3/uL1.2-3.8Bellevue HospitalLymphocytes/100 WBC Auto (Bld)on 08-17-2023 Lymphocytes/100 WBC (Bld)47.4 %20.5-60.0[facility] Auto (RBC) [Entitic mass]on 80-76-6879YRM (RBC) [Entitic mass]32.4 pg26.7-34.0 [facility] HospitalMCHC Auto (RBC) [Mass/Vol]on 36-22-2476XHKH (RBC) [Mass/Vol]33.3 g/dL29.9-35.2FNorwalk Memorial HospitalMCV Auto (RBC) [Entitic vol]on 05-57-5252HSS (RBC) [Entitic vol]97.5 fL81.0-99.0[facility] HospitalMonocytes Auto (Bld) [#/Vol]on 42-04-5792Wxojamana (Bld) [#/Vol]0.6 10 3/uL0.3-0.8B[facility] HospitalMonocytes/100 WBC Auto (Bld)on 34-60-6910Bkdpqawxl/100 WBC (Bld)9.3 %1.7-12.0[facility] HospitalMucus LM Ql (Urine sed)on 97-08-3112Uomrj Ql (Urine sed)NONE SEEN NONE SEENBellevue HospitalNeutrophils Auto (Bld) [#/Vol]on 31-74-0217Fmtahonbmge (Bld) [#/Vol]2.6 10 3/uL1.4-6.5FNorwalk Memorial HospitalNeutrophils/100 WBC Auto (Bld)on 72-93-1634Olygosvvklo/100 WBC (Bld)39.2 % 43.0-75.0[facility] HospitalNo Panel Informationon 11-98-4801Xdepa Microscopic ReviewYEMcKitrick HospitalBedside Influenza Type A AntigenNegativeBellevue HospitalComment on above:Negative for Flu A protein antigen. Infection due to Flu Acannot be ruled out. Flu A antigen in thesample may bebelow the detection limit of the test.Bedside Influenza Type B AntigenNegativeBellevue HospitalComment on above:Negative for Flu B protein antigen. Infection due to Flu Bcannot be ruled out. Flu B antigen in thesample may bebelow the detection limit of the test.Eosinophils # (Auto)0.1 10 3/uL0.0-0.7FNorwalk Memorial HospitalImmature Granulocyte # (Auto) 0.08 10 3/uL0.00-0.03B[facility] HospitalTroponin I High Sensitivity<4.0 pg/mL4.0-51.3FNorwalk Memorial HospitalComment on above: CUT-OFF POINTS HAVE BEEN ESTABLISHED BASED ON THE FOURTHUNIVERSAL DEFINITION OF MYOCARDIAL INFARCTION. THE UPPERREFERENCE LIMIT (URL) OF TROPONIN, DEFINED THE 99THPERCENTILE OF cTnI DISTRIBUTION IN A REFERENCE POPULATION,HAS BEEN CONFIRMED THE DECISION THRESHOLD FOR MIDIAGNOSIS.99TH PERCENTILE = 51.4 PG/MLNOTE: HIGH-SENSITIVITY TROPONIN ASSAY IS NOT INTENDED TO BEUSED IN ISOLATION BUT SHOULD BE INTERPRETED IN CONJUNCTIONWITH OTHER DIAGNOSTIC AND CLINICAL INFORMATION.Physician Orderon 17-44-1452Ygcsunzwj Order [id number]#1.00TIFFUniversity Hospitals Lake West Medical CenterPhysician [id number]#1.00TIFFNormal Uribe [facility] Harbor HospitalPlatelet mean volume Auto (Bld) [Entitic vol]on 09-03-2178Cgepiygk mean volume (Bld) [Entitic vol]9.4 fL9.5-13.5FNorwalk Memorial HospitalPlatelets Auto (Bld) [#/Vol]on 28-10-1736Iwthsolti (Bld) [#/Vol]278 10 3/qS967-277SzcbdweefBellevue HospitalProtein Auto test strip (U) [Mass/Vol]on 46-20-3707Tmfjusk (U) [Mass/Vol]NegativeNEG/TRACE [facility] HospitalProthrombin time (PT)on 73-45-9159VG Coag (PPP) [Time]9.7 s9.0-11.6FNorwalk Memorial HospitalRAD - MISCon 91-29-2374ZMS - [id number]#1.00TIFFNoMcCullough-Hyde Memorial HospitalRBC Auto (Bld) [#/Vol]on 05-27-3658ZOM (Bld) [#/Vol]4.35 10 6/uL 4.20-5.40Parkwood Hospitalerum or plasma albumin/globulin mass ratioon 16-58-6202Mjoslwu/Globulin [Mass ratio]0.9 {ratio}Parkwood Hospitalerum or plasma anion gap determinationon 59-38-4325Jlzew gap [Moles/Vol]17.7 mmol/LFSuburban Community Hospital & Brentwood Hospitalpecific gravity Auto test strip (U) [Rel density]on 55-75-5661Jubibgrf gravity (U) [Rel density]CLEAR CLEARBellevue HospitalUrine bacteria detection by automated methodon 27-30-0342Xiefhacu Auto Ql (U)NONE SEEN #/HPFNONE OhioHealthUrine glucose measurement by test strip (mass/volume)on 24-46-4214Jtoctej Test strip (U) [Mass/Vol]NegativeNEGMercy Health Allen HospitalUrine hemoglobin detection by automated test stripon 08-17-2023 Hemoglobin Auto test strip Ql (U)NegativeNEGMercy Health Allen HospitalUrine nitrite detection by automated test stripon 78-55-3648Ateqnbo Auto test strip Ql (U)SMALLNEGMercy Health Allen HospitalNitrite Auto test strip Ql (U)NegativeNEGMercy Health Allen HospitalUrine sediment crystal identification by light microscopyon 48-18-3695Uegliysi LM Nom (Urine sed)None Seen #/HPFNone [facility] HospitalUrine sediment leukocyte count by microscopy (number/high power field)on 13-97-0408LLP LM.HPF (Urine sed) [#/Area]0-2 #/HPFNONE [facility] Urobilinogen Auto test strip (U) [Mass/Vol]on 99-53-0314Fhgxokruexbw Qn (U)0.2 {Zhanna'U}/dL0.2-1.0B[facility] HospitalpH Auto test strip (U)on 45-02-9289zU (U)7.5 [pH]5.0-9.0B[facility]vue HospitalMG MAMM SCREEN 3D LASHELL CADon 10-80-6614LP MAMM SCREEN 3D LASHELL CADPatient: NETTE PUENTES Exam Date: 05/09/2022 : 1950 Gender:F Ordering : DR AMINA TYLER M.D. Admission #: [id number] Family : Order #: [id number] CLICK HERE TO VIEW EXAM RADIOLOGY REPORT [...] pancreatic cancer at age 76. LOCATION: [facility] BREAST COMPOSITION: Scattered areas fibroglandular density. FINDINGS: [...] by: Frandy Lorenzana M.D. on 05/10/2022 at 12:52[facility] Medical CenterECHOCARDIO M/2D COMPLETEon 29-31-3228TDKXWOQYFY M/2D COMPLETEPatient: NETTE PUENTESPauly Exam Date: 02/11/2022 : 1950 Gender:F Ordering : DR AMINA TYLER M.D. Admission #: [id number] Family : Order #: [id number] CLICK HERE TO VIEW EXAM ECHOCARDIOGRAM REPORT [...] by: René Randolph M.D. on 02/11/2022 at 16:00NormalThSt. Francis Hospital AUTO DIFFon 26-53-4784BJUL #0.1 103/ulNormal0.0-0.1The [facility] CenterComment on above:Performed By: #### CBC ####[facility] [address] [place], [place] [address]Dr.Yilan ChangBasophils/100 WBC (Bld)1.1 %Normal0.2-2.0The [facility] CenterComment on above:Performed By: #### CBC ####[facility] [address] [place] [place] [id number].Yilan ChangEO #0.2 103/ulNormal0.0-0.7The [facility] CenterComaspirus keweenaw hospital on above:Performed By: #### CBC ####[facility] [address] [place] [address]Dr.Yilan ChangEosinophils/100 WBC (Bld)3.6 %Normal 0.9-7.0The [facility] CenterComment on above:Performed By: #### CBC ####[facility] H[address] [place], [place] [address]Dr.Janel Morris Erythrocyte distribution width (RBC) [Ratio]12.7 %Ococol91.0-15.0The [facility] CenterComment on above:Performed By: #### CBC ####[facility] Tcvenk[address]ru[address] [place], [place] [address]Dr.Jessyarmando ArturoHematocrit (Bld) [Volume fraction]40.0 %Wcjbof60.0-48.0The [facility] CenterComment on above:Performed By: #### CBC ####[facility] Gxey[address]fn[address] [place], [place] [address]Dr.Janel MorrisHemoglobin (Bld) [Mass/Vol]13.5 g/dL Ryfudz27.0-16.0The [facility] CenterComment on above:Performed By: #### CBC ####[facility] Vkorpknp[address] [place], [place] [address]Dr. Janel MorrisIG #0.01 10e3/ulNormal0.00-0.03The [facility] CenterComment on above: Performed By: #### CBC ####[facility] Scwsa[address] [place], [place] [address]Dr.Janel MorrisIG %0.2 %Normal0.0-0.5The [facility] CenterComment on above:Performed By: #### CBC ####[facility] Dvmwgsznrs[address] [place], [place] [address]Dr.Janel MorrisLYMPH #2.5 103/ulNormal1.2-3.8The [facility] CenterComment on above:Performed By: #### CBC ####[facility] Srlrnjomrx[address] [place], [place] [address]Dr. Janel MorrisLymphocytes/100 WBC (Bld)47.2 %Hkxgkg73.5-60.0The [facility] Comment on above:Performed By: #### CBC ####[facility] Fgrnupyiy[address] [place], [place] [address]Dr.Yilan ChangMANUAL DIFF REQNONormalThe [facility] CenterComment on above:Performed By: #### CBC ####[facility] [address] [place] [address]Dr.Janel MorrisH (RBC) [Entitic mass]32.4 amAjhuqf43.7-34.0The [facility] HospitalComment on above: Performed By: #### CBC ####[facility] Ougbaufktj[address] [place], [place] [address]Dr.Janel MorrisHC (RBC) [Mass/Vol]33.8 g/dLNormal 29.9-35.2The [facility] HospitalComment on above:Performed By: #### CBC ####[facility] Xnsucobxgb[address] [place], [place] [address]Dr. Janel MorrisV (RBC) [Entitic vol]95.9 mYJegiek64.0-99.0The [facility] Comment on above:Performed By: #### CBC ####[facility] Xveqttggcx[address] [place], [place] [address]Dr.Janel MorrisMONO #0.5 103/ulNormal0.3-0.8 The [facility] CenterComment on above:Performed By: #### CBC ####[facility] Kjckpuaf[address] [place], [place] [address]Dr.Janel Morris Monocytes/100 WBC (Bld)10.0 %Normal1.7-12.0The [facility] CenterComment on above:Performed By: #### CBC ####[facility] Srvedfmpis[address] [place], [place] [address]Dr.Janel MorrisNEUT #2.0 103/ulNormal1.4-6.5The [facility] CenterComment on above:Performed By: #### CBC ####[facility] Mysubgbfer[address] [place], [place] [address]Dr.Janel MorrisNeutrophils/100 WBC (Bld)37.9 %Critically low43.0-75.0The [facility] CenterComment on above: Performed By: #### CBC ####[facility] [address] [place] [address]Sr.Janel MorrisPlatelet mean volume (Bld) [Entitic vol] 8.9 fLCritically low9.5-13.5The [facility] CenterComment on above:Performed By: #### CBC ####[facility] [address] [place] [address]Dr.Janel MorrisPLT279 103/dkOfedqf707-753Jkc [facility] CenterComment on above:Performed By: #### CBC ####[facility] [address] [place] [address]Dr.Janel ChangRBC4.17 106/ulCritically low4.20-5.40The [facility] CenterComment on above:Performed By: #### CBC ####[facility] [address] [place] [address]Dr.Janel MorrisWBC5.3 103/ul Normal4.0-11.0The [facility] CenterComment on above:Performed By: #### CBC ####[facility] [address] [place] [address]Dr. Janel MorrisCRPon 31-45-6234CNH [Mass/Vol]mg/LNormal<=1.0The [facility] Comment on above:Performed By: #### HSTROPN, CMP, CRP ####[facility] [address] [place] [address]Dr. Janel MorrisCovid-19 PCR (CVDTBH)on 53-12-0218VNLG-CoV-2 (COVID-19) RNA PADMINI+probe Ql (Unsp spec)Not detectedNormalNOT DETECTEDThe Ohio Valley Hospitalment on above:Result Comment: When diagnostic testing is negative, the [...] for this test is supported by the [place] of Health and Human Service's declaration that circumstances exist to justify the emergency use of in vitro diagnostics for the detection and/or diagnosis of the virus that causes COVID-19. This EUA will remain in effect for the duration of the COVID-19 declaration justifying emergency of IVDs, unless it is terminated or revoked by the FDA (after which the test may no longer be used).Performed By: #### CVDTBH ####[facility] [address] [place] [address]Dr. Janel MorrisD-DIMERon 94-58-4721J-DIMER0.30 mg/L FEUNormal<=0.59The [facility] CenterComment on above:Performed By: #### DDIM ####[facility] [address]am[address] [place], [place] [address]Dr. Janel MorrisD-DIMER COMMENTSSEE BELOWNormalThHolzer Medical Center – JacksonComment on above:Result Comment: Increases in D-Dimer concentration observed with thromboembolic events [...] stress, and generalized hospitalization. Performed By: #### DDIM ####[facility] [address]loc[address] [place], [place] [address]Dr. Janel MorrisPROF 14(COMP METB)on 41-53-0740Lpcppxi [Mass/Vol]3.9 g/dLNormal3.4-5.0The [facility] CenterComment on above:Performed By: #### HSTROPN, CMP, CRP ####[facility] [address] [place] [address]Dr. Janel MorrisAlbumin/Globulin [Mass ratio]1.2 {ratio} NormalThe [facility] Medical CenterComaspirus keweenaw hospital on above:Performed By: #### HSTROPN, CMP, CRP ####[facility] [address] [place] [address]Dr. Yilan ChangALP [Catalytic activity/Vol]74 U/WTaxpxu00-688Ora [facility] Comment on above:Performed By: #### HSTROPN, CMP, CRP ####[facility] [address] [place] [address]Dr. Yilan ChangALT [Catalytic activity/Vol]15 U/AVitqor22-73Lcw [facility] CenterComment on above:Performed By: #### HSTROPN, CMP, CRP ####[facility] [address] [place] [address]Dr. Yilan ChangAnion gap [Moles/Vol]12.7 mmol/LNormal The [facility] CenterComment on above:Performed By: #### HSTROPN, CMP, CRP ####[facility] [address] [place], [place] [address]Dr. Yilan ChangAST [Catalytic activity/Vol]15 U/WSvyced87-75Mnx [facility] Comment on above:Performed By: #### HSTROPN, CMP, CRP ####[facility] [address] [place], [place] [address]Dr. Yilan ChangBilirubin [Mass/Vol]0.4 mg/dLNormal0.2-1.0The [facility] on above:Performed By: #### HSTROPN, CMP, CRP ####[facility] G[address] [place], [place] [address]Dr. Yilan ChangCalcium [Mass/Vol]9.4 mg/dLNormal 8.5-10.1The [facility] CenterComment on above:Performed By: #### HSTROPN, CMP, CRP ####[facility] [address] [place], [place] [address]Dr. Yilan ChangChloride [Moles/Vol]105 mmol/XPcdvzo62-415Aol [facility] Comment on above:Performed By: #### HSTROPN, CMP, CRP ####[facility] V[address] [place], [place] [address]Dr. Yilan ChangCO2 [Moles/Vol] 26.1 mmol/HQooblq05.0-32.0The [place] [facility] on above:Performed By: #### HSTROPN, CMP, CRP ####[facility] [address] [address]Dr. Yilan ChangCreatinine [Mass/Vol]1.02 mg/dLNormal 0.55-1.02The [facility] CenterComment on above:Performed By: #### HSTROPN, CMP, CRP ####[facility] T[address] [place], [place] [address]Dr. Yilan ChangEGFR-AF CITIZEN OF [place]>60Normal>=60The [facility] CenterComment on above: Performed By: #### HSTROPN, CMP, CRP ####[facility] Z[address] [place], [place] [address]Dr. Yilan ChangEGFR-NON AF YSMCZIMR97 mL/min/1.84v5Tpoczwkywf low>=60The [facility] on above:Performed By: #### HSTROPN, CMP, CRP ####[facility] [address] [place], [place] [address]Dr. Yilan ChangGlobulin (S) [Mass/Vol]3.3 g/dLNormalThe [facility] CenterComaspirus [facility] on above:Performed By: #### HSTROPN, CMP, CRP ####[facility] Qdpvn[address] [place], [place] [address]Dr. Yilan ChangGlucose [Mass/Vol]94 mg/mKJllsvf40-808Gch [facility] CenterComasp[facility] on above:Performed By: #### HSTROPN, CMP, CRP ####[facility] K[address] [place], [place] [address]Dr. Yilan ChangPotassium [Moles/Vol]3.8 mmol/LNormal3.5-5.1The [facility] CenterComment on above:Performed By: #### HSTROPN, CMP, CRP ####[facility] [address] [place], [place] [address]Dr. Yilan ChangProtein [Mass/Vol]7.2 g/dLNormal6.4-8.2The [facility] HospitalComment on above:Performed By: #### HSTROPN, CMP, CRP ####[facility] [address] [place] [address]Dr. Yilan ChangSodium [Moles/Vol]140 mmol/POovmro948-808Udo [facility] CenterComment on above: Performed By: #### HSTROPN, CMP, CRP ####[facility] [address] [address]Dr. Yilan ChangUrea nitrogen [Mass/Vol]20.0 mg/dL Critically high7.0-18.0The [facility] CenterComment on above:Performed By: #### HSTROPN, CMP, CRP ####[facility] [address] [address]Dr. Yilan ChangUrea nitrogen/Creatinine [Mass ratio]19.6 mg/mgNormal The [facility] CenterComment on above:Performed By: #### HSTROPN, CMP, CRP ####[facility] [address] [address]Dr. Yilan ChangSED RATE WESTERGRENon 56-31-2457AJP RATE12 mm/hrNormal<=30The [facility] on above:Result Comment: Previously reported as: 20 On 02/03/2022 20:45 By [id number] By: #### SEDR #### [facility] Laboratory [address] [address] [address] Janel Hou, HIGH SENSITIVITYon 34-82-3914DWTNKA5.4 pg/mLNormal 4.0-51.3The [facility] on above:Result Comment: CUT-OFF POINTS HAVE BEEN ESTABLISHED BASED ON THE FOURTH UNIVERSAL DEFINITIONS OF MYOCARDIAL INFARCTION. THE UPPER REFERENCE LIMIT (URL) OF TROPONIN, DEFINED THE 99TH PERCENTILE OF cTnI DISTRIBUTION IN A REFERENCE POPULATION, HAS BEEN CONFIRMED THE DECISION THRESHOLD FOR IA DIAGNOSIS.Performed By: #### HSTROPN ####[facility] [address] [address] [address]Dr. Yilan ChangHSTROP4.4 pg/mLNormal4.0-51.3 The [facility] HospitalComment on above:Result Comment: CUT-OFF POINTS HAVE BEEN ESTABLISHED BASED ON THE FOURTH UNIVERSAL DEFINITIONS OF MYOCARDIAL INFARCTION. THE UPPER REFERENCE LIMIT (URL) OF TROPONIN, DEFINED THE 99TH PERCENTILE OF cTnI DISTRIBUTION IN A REFERENCE POPULATION, HAS BEEN CONFIRMED THE DECISION THRESHOLD FOR IA DIAGNOSIS.Performed By: #### HSTROPN, CMP, CRP ####[facility] [address] [place], [place] [address]CiDr. Janel MorrisXR CHEST 1 Von 05-29-5239PF CHEST 1 VEXAMINATION: XR CHEST 1 V HISTORY: Shortness of breath COMPARISON: None. TECHNIQUE: Portable chest FINDINGS: The lung parenchyma is free of consolidation or infiltrate. No pneumothorax or pleural effusion. The cardiac, mediastinal and hilar contours are normal. The visualized osseous structures exhibit no gross abnormality. IMPRESSION: No acute cardiopulmonary abnormality. Electronically authenticated by: APOLLO HUBER Date: 2022-02-03 21:05NoDelaware County HospitalCovid-19 PCR (CVDTBH)on 28-51-4514ICDW-CoV-2 (COVID-19) RNA PADMINI+probe Ql (Unsp spec)Not detectedNormalNOT DETECTEDThe [facility] Comment on above:Result Comment: This test is not yet approved or cleared by the [place] FDA. When there are no FDA-approved or cleared tests available, and other criteria are met, FDA can make tests available under an emergency access mechanism called an Emergency Use Authorization (EUA). The EUA for this test is supported by the [place] of Health and Human Service's (HHS's) declaration that circumstances exist to justify the emergency use of in vitro diagnostics for the detection and/or diagnosis of the virus that causes COVID- 19. This EUA will remain in effect (meaning [...] of clinical signs and symptoms consistent with SARS-CoV-2.Performed By: #### CVDTBH #### [facility] [address] [place], [place] [address] Dr. Janel Morris Vital Signs Date TimeVital SignValuePerforming LykgupekdIdygrewv27-94-5155 08:28-0400Body pramsv420.56 cmAmina Tyler MD Work Phone: [phone]10-23-2025 08:28-0400 Body mass index (BMI) [Ratio]25.5 kg/w0ObtnbbAmina Tyler MD Work Phone: [phone]10-23-2025 08:28-0400 Body nayibz35.58 kgAmina Tyler MD Work Phone: [phone]10-23-2025 08:28-0400 Diastolic blood ceobfgzj36 mm[Hg]Amina Tyler MD Work Phone: [phone] [place], [place] [address]10-23-2025 08:28-0400 Heart rate71 /Alyssa Tyler MD Work Phone: [phone]10-23-2025 08:28-0400 Systolic blood oiivjtpd146 mm[Hg]Amina Tyler MD Work Phone: [phone]06-05-2025 11:44-0400 Body btdorr343.56 [facility]06-[facility]-2025 11:44-0400Body mass index (BMI) [Ratio]26.4 kg/y1IwbmyaryxBellevue Hospital06-05-2025 11:44-0400Body rbolfsjckco26.4 [degF][facility]06-05-2025 11:44-0400Body iznscw66.85 kgBellevue Hospital06-05-2025 11:44-0400Diastolic blood mm[Hg][facility] 11-14-2024 11:44-0400Heart rate76 /minBellevue Hospital 11-14-2024 11:44-4781IrH4% (BldA) [Mass fraction]98 %[facility]06-05-2025 11:44-0400Systolic blood bcqhtjyq691 mm[Hg][facility]04-01-2024 08:31-0400Body eywqjp032.1 cmB[facility]vue Hospital04-01-2024 08:31-0400Body mass index (BMI) [Ratio]25.7 kg/l5UxoycbvjmBellevue Hospital04-01-2024 08:31-0400Body rdyptv33.3 kgB[facility]vue Hospital04-01-2024 08:31-0400Diastolic blood mm[Hg][facility]04-01-2024 08:31-0400Heart rate79 /minBellevue Hospital04-01-2024 08:31-0400Systolic blood etyhtwcc860 mm[Hg][facility]03-11-2024 08:44-0400Body nmidns486.1 cmBellevue Hospital03-11-2024 08:44-0400Body mass index (BMI) [Ratio]2.5 kg/l9YvgebotxcBellevue Hospital03-11-2024 08:44-0400Body dgeucvfcmxe08.8 [degF][facility]03-11-2024 08:44-0400Body weight6.86 kg [facility]03-11-2024 08:44-0400Diastolic blood kxoxjlfv24 mm[Hg][facility]03-11-2024 08:44-0400Heart rate84 /min [facility]03-11-2024 08:44-0400Systolic blood gzcgtsiy451 mm[Hg][facility]09-14-2023 09:15-0400Body xogbry575.1 cm Amina Tyler Other [facility] Other 09-14-2023 09:15-0400Body mass index (BMI) [Ratio] 25.96 kg/e9HzzbudAmina Tyler Other [employer] Other 09-14-2023 09:15-0400Body .76 kgAmina Tyler Other [facility] Other 09-14-2023 09:15-0400Diastolic blood gzsotcbk92 mm[Hg] Amina Tyler Other [employer] [employer] Other 09-14-2023 09:15-0287WtZ2% (BldA) [Mass fraction]99 % Amina Tyler Other noNS[facility] [employer] Other 09-14-2023 09:15-0400Systolic blood printqhr244 mm[Hg] Amina Tyler Other [facility] [employer] Other Encounters Encounter DateEncounter TypeCare ProviderFacilityStart: 04-03-2025 End: 78-63-6821wqqnjtgodsApaeal E Braun MD Work Phone: -[facility] [place] [facility] 04-03-2025 End: 35-82-7506Pyieyyr encounter procedureAmina Tyler MDCherrington Hospital Work Phone: Start: 11-14-2024 End: 22-45-3360khqwchtnzrSqtnopbcwUpper [facility] Medical Center Work Phone: Start: 11-14-2024 End: 96-55-9457Izujxgq encounter procedureEstrellita Physician [facility] Work Phone: Start: 01-09-2024 End: 41-15-7518cwixpyzdfqWTUQUK H TIMMISNot AvailableStart: 12-06-2023 End: 42-56-3768sqsxexphozKNZMLJ H TIMMISNot AvailableStart: 11-29-2023 End: 18-60-7142ofdftnmdgtOKQFIRY A MCGILLNot AvailableStart: 09-11-2023 End: 52-50-1591nhkyxljensJaynronadUniversity Hospitals [facility] Work Phone: Start: 09-11-2023 End: 91-79-4195Otgvecq encounter procedureEstrellita Physician Group-[facility] Work Phone: Start: 08-21-2023 End: 51-67-0460Hgftomm encounter procedureCommunity Health Physician [facility] Work Phone: Start: 08-17-2023 End: 73-89-5253uguqbtmwvcIezndrf GremaryconcepcionFacility:FTMCStart: 08-17-2023 End: 45-77-5021Fjotcvq encounter procedurePadma Joyner [facility] Start: 49-30-3574Pza-patient / Non-visitCommunity Health Physician Group-[facility] Professional [employer] Work Phone: Start: 02-23-2023 End: 95-99-7027hvjzimiydbKucnkq Braun Other [facility] [employer] Other Start: 78-51-6043Sdyyta outpatient visit 15 minutes Amina TylerRobina [facility] Hospitaltart: 05-09-2022 End: 44-15-6681oonfggdairMG AMINA Garduno BRAUNFacility:N6Yglst: 02-11-2022 End: 49-81-2418ezhdkcqgljYQ AMINA Garduno BRAUNFacility:K7Uquvt: 02-03-2022 End: 97-56-9666bgmzdqahynLE RAMIREZ MARKERFacility:K2Qpquh: 05-26-2021 End: 74-49-1204mbbdbdewwlIC AMINA Garduno BRAUNFacility:H1 Plan of Treatment DateCare ActivityDetailAuthorStart: 53-71-2991Qwxsorv referralSt. [facility] Hospital Work Phone: MG Breast - bilateral ScreeningBellevue HospitalPatient referralSt. Elizabeth Hospital Work Phone: [facility] Immunizations Immunization DateImmunizationNotesCare WyjaqmluKulkwosz93-43-8195vzcaasyhhapi conjugate vaccine, 13 valentMarjavier Tyler Other [facility] Payers DatePayer CategoryPayerPolicy [id number] Health [id number] [id number] 1960Private Health [id number] [id number] [id number] 2.16.840.1.094092.3.57[id number] 2.16.840.1.527456.3.57[id number] 2.16.840.1.113161.3.57[id number] 2.16.840.1.709284.3.57[id number] 2.16.840.1.523352.3.57[id number] 2.16.840.1.202767.3.57[id number] 2.16.840.1.522063.3.57[id number] 2.16.840.1.5217[id number] kgk26fbr-fa80-78a3-5pc2-e57368py4vgk Social History DateTypeDetailFacilitySex Assigned At [facility] HospitalTobacco smoking statusNo Smoking Status [facility]23 End: 61-12-3178Mhcumwz smoking status NHISEx-smoker (finding)[facility]: 83-34-4568Hrk Assigned At [facility]: 52-60-9193PgrPrzfiy (finding)[facility] Clinical Notes 02-23-2023 Note Date & UfhhVllnZufakhfy28-74-8039 Evaluation note* Encounter Date Diagnosis Assessment Notes Treatment Notes Treatment Clinical Notes Feb, Benign paroxysmal po sitional vertigo, unspecified laterality (ICD- 10 - H81.10) Discussed diagnosis with patient and [...] vertigo. Gave order for PT as well. [facility] Other Chief complaint+Reason for visit Narrative* Chief Complaint ear left pain vertigo [facility] VisitAcute effusion of both middle ears Decreased hearing of left ear Tinnitus of left ear Vertigo [facility] Work Phone: Evaluation + Plan note No data available for this section [facility] Center[facility]* Diagnosis Onset Date Resolution Status Acute effusion of both middle ears acuteDecreased hearing of left earacuteTinnitus of left earacuteVertigoacute [facility] Work Phone: Evaluation noteNo assessment information available [facility] Work Phone: Evaluation note* Diagnosis Onset Date Resolution Status Admit Date Colon cancer screening acuteOctober 2024 8:17amScreening mammogram for breast canceracuteOctober 2024 8:17am [facility] Work Phone: History general Narrative - Reported* Type Description Date Medical History Syncope and collapse Medical HistoryPain in right shoulderMedical HistorySituational anxietySurgical HistoryB zlkqvccef3088Dglphuub HistoryCarpal tunnel release- right hizo2286 Surgical ZwvvjljHkggunnyciu1127Qwseefhtwzlfaeo Historysee surgical hx [facility] Other Hospital Discharge instructions No data available for this section [facility] CenterHospital Discharge instructionsAmbulatory Orders* Referral to ENT Time Frame: 09/11/23, Location: None Selected [facility] Work Phone: Progress note No data available for this section [facility] CenterReason for referral (narrative)No reason for referral information availableSt. Elizabeth Hospital Work Phone: Summary Purpose Family History Relationship Condition Age at Onset Recorded Date/T shana father Aneurysm Unknown DeceasedUnknownNot SpecifiedDeceasedUnknownFamily history of pancreatic cancer Unknown Relationship Condition Age at Onset Recorded Date/T shana father Aneurysm Unknown DeceasedUnknownmotherDeceasedUnknownFamily history of pancreatic cancerUnknown Advance Directives Advance Directive Response Recorded Date/ Time Advance Directives No August 20 8:34am Chief Complaint and Reason for Visit Chief Complaint Admit Date Sinuses/Neck Pain November 14, 2024 11:35 am Chief Complaint Admit Date Wellness April 03, 2025 8 :17am Reason for Visit Admit Date Colon cancer screening April 03 8:17am Screening mammogram for breast cancer Oc tober 2024 8:17am Additional Source Comments INFORMATION SOURCE (unrecogn ized section and content) DATE CREATED AUTHOR 05/14/2022 [facility] DATE CREATED AUTHOR AUTHOR'S ORGANIZ ATION 08/19/2023 [facility] DATE CREATED AUTHOR AUTHOR'S ORGANIZ ATION 01/11/2024 [facility] EPIC REASON FOR VISIT (unrecogniz ed section and content) DIZZY SPELLS Patient Care team informatio n (unrecognized section and content) Team Status: Active Member Role Status Dates Amina Tyler MD Primary Care Provider Active Team Status: Inactive Member Role Status Dates Amina Tyler MD Primary Care Provide r, Attending Provider Active Start: November 14, 2024 End: November 14, 2024 Team Status: Active Member Role Status Dates [...] September 11, 2023 End: September 11, 2023 Team Status: Active Member Role/Relationship Status Dates Amina Tyler MD Primary Care Provider Active Team Status: Inactive Member Role/Relationship Status Dates Amina Tyler MD Primary Care Provider Active Start: April 03, 2025 End: April 03, 2025Amina Tyler MDAttending ProviderActiveStart: April 03, 2025 End: April 03, 2025 Goals (unrecognized section and content) Goals may [...] BE BASED ON THE PRIMARY CLINICAL RECORDS. [address] [facility]. provides no warranty or guarantee of the accuracy or completeness of information in this document.
== END 2025-04-07 09:46 | disposition home or self-care (01) ==
LOC: MAMMO 09:46
PROVIDERS: PCP Family Medicine; Visit Provider Family Medicine
DX: Z12.31 Encounter for screening mammogram for malignant neoplasm of breast (principal); Z80.8 Family history of malignant neoplasm of other organs or systems
CPT/HCPCS: 77063; 77067